=== PATIENT | male | born 1960 | race Asian ===

== ENCOUNTER 2017-06-30 13:52 | Inpatient (IN) | payer MEDICAID ==
[2017-06-30 17:46] LABS: ADD MAN DIFF? NO
[2017-06-30 17:50] LABS: BASOPHILS % 0.1 % (0.0-2.0); EOSINOPHILS % 0.1 % (0.0-7.0); HEMATOCRIT 51.5 % (42.0-52.0); HEMOGLOBIN 16.7 g/dl (14.0-18.0); LYMPHOCYTES # 0.8 10^3/ul (0.8-2.9); LYMPHOCYTES % 10.8 % (15.0-51.0); MEAN CORPUSCULAR HEMOGLOBIN 28.4 pg (29.0-33.0); MEAN CORPUSCULAR HGB CONC 32.4 g/dl (32.0-37.0); MEAN CORPUSCULAR VOLUME 87.4 fl (82.0-101.0); MEAN PLATELET VOLUME 10.4 fl (7.4-10.4); MONOCYTE # 0.6 10^3/ul (0.3-0.9); MONOCYTES % 7.3 % (0.0-11.0); NEUTROPHIL # 6.3 10^3/ul (1.6-7.5); NEUTROPHILS % 81.3 % (39.0-77.0); PLATELET COUNT 273 10^3/UL (140-415); RED BLOOD COUNT 5.89 10^6/ul (4.70-6.10); RED CELL DISTRIBUTION WIDTH 14.5 % (11.5-14.5)
[2017-06-30 17:50] LABS: WHITE BLOOD COUNT 7.8 10^3/ul (4.8-10.8)
[2017-06-30 18:11] LABS: ALANINE AMINOTRANSFERASE 44 IU/L (13-69); ALBUMIN 3.6 g/dl (3.3-4.9); ALKALINE PHOSPHATASE 142 IU/L (42-121); ASPARTATE AMINO TRANSFERASE 55 IU/L (15-46); BILIRUBIN,INDIRECT 1.2 mg/dl (0-1.1); BILIRUBIN,TOTAL 1.5 mg/dl (0.2-1.3); TOTAL PROTEIN 7.6 g/dl (6.1-8.1)
[2017-06-30 18:24] LABS: B-TYPE NATRIURETIC PEPTIDE 11400 PG/ML (0-125); TROPONIN-I 0.093 ng/ml (0.00-0.12)
[2017-06-30 18:32] LABS: ANION GAP 15 (8-16); BLOOD UREA NITROGEN 15 mg/dl (7-20); CALCIUM 8.6 mg/dl (8.4-10.2); CARBON DIOXIDE 32 mmol/L (21-31); CHLORIDE 98 mmol/L (97-110); GLUCOSE 212 mg/dl (70-220); POTASSIUM 3.9 mmol/L (3.5-5.1); SODIUM 141 mmol/L (135-144)
[2017-06-30] MEDS: FUROSEMIDE 40 MG INJ IV (18:57)
[2017-06-30] MEDS ORDERED: ONDANSETRON 4 MG INJ IV (19:30)
[2017-06-30] MEDS ORDERED: ACETAMINOPHEN 325 MG TAB PO (19:30)
[2017-06-30] MEDS: ALBUTEROL 0.5% (NEB) 2.5 MG/0.5 ML AMP INH (19:42)
[2017-06-30] MEDS: IPRATROPIUM (NEB) 0.5 MG/2.5 ML AMP INH (19:42)
[2017-07-01] MEDS ORDERED: ALBUTEROL/IPRATROPIUM (NEB) 3 ML AMP HHN (00:30)
[2017-07-01] MEDS ORDERED: morphine 2 MG INJ IV (00:30)
[2017-07-01] MEDS ORDERED: ONDANSETRON 4 MG INJ IV (00:30)
[2017-07-01] MEDS ORDERED: NITROGLYCERIN (SL) 0.4 MG TAB SL (00:30)
[2017-07-01] MEDS ORDERED: ACETAMINOPHEN 325 MG TAB PO (00:30)
[2017-07-01] MEDS ORDERED: NACL 0.9% 3 ML SYG IV (00:30)
[2017-07-01 06:08] LABS: ADD MAN DIFF? NO
[2017-07-01 06:39] LABS: WHITE BLOOD COUNT 6.7 10^3/ul (4.8-10.8)
[2017-07-01 06:39] LABS: BASOPHILS % 0.2 % (0.0-2.0); EOSINOPHILS % 0.3 % (0.0-7.0); HEMATOCRIT 41.8 % (42.0-52.0); HEMOGLOBIN 13.9 g/dl (14.0-18.0); LYMPHOCYTES # 0.7 10^3/ul (0.8-2.9); LYMPHOCYTES % 10.5 % (15.0-51.0); MEAN CORPUSCULAR HEMOGLOBIN 28.5 pg (29.0-33.0); MEAN CORPUSCULAR HGB CONC 33.3 g/dl (32.0-37.0); MEAN CORPUSCULAR VOLUME 85.8 fl (82.0-101.0); MEAN PLATELET VOLUME 10.2 fl (7.4-10.4); MONOCYTE # 0.6 10^3/ul (0.3-0.9); NEUTROPHIL # 5.3 10^3/ul (1.6-7.5); NEUTROPHILS % 79.7 % (39.0-77.0); PLATELET COUNT 236 10^3/UL (140-415); RED BLOOD COUNT 4.87 10^6/ul (4.70-6.10); RED CELL DISTRIBUTION WIDTH 14.6 % (11.5-14.5)
[2017-07-01 07:14] LABS: ALANINE AMINOTRANSFERASE 40 IU/L (13-69); ALBUMIN 2.4 g/dl (3.3-4.9); ALBUMIN/GLOBULIN RATIO 0.85; ALKALINE PHOSPHATASE 93 IU/L (42-121); ANION GAP 11 (8-16); ASPARTATE AMINO TRANSFERASE 29 IU/L (15-46); BILIRUBIN,INDIRECT 0.7 mg/dl (0-1.1); BILIRUBIN,TOTAL 0.7 mg/dl (0.2-1.3); BLOOD UREA NITROGEN 14 mg/dl (7-20); CALCIUM 7.7 mg/dl (8.4-10.2); CARBON DIOXIDE 32 mmol/L (21-31); CHLORIDE 101 mmol/L (97-110); CHOL/HDL RATIO 2.8 RATIO; CHOLESTEROL 80 mg/dl (100-200); CREATININE 0.84 mg/dl (0.61-1.24); GLUCOSE 206 mg/dl (70-220); HDL CHOLESTEROL 28 mg/dl (30-78); LDL CHOLESTEROL,CALCULATED 39 mg/dl; MAGNESIUM 1.7 mg/dl (1.7-2.5); POTASSIUM 3.4 mmol/L (3.5-5.1); SODIUM 141 mmol/L (135-144); TOTAL PROTEIN 5.2 g/dl (6.1-8.1); TRIGLYCERIDES 65 mg/dl (0-149)
[2017-07-01] MEDS: FUROSEMIDE 40 MG INJ IV ×2 (07:27→17:46)
[2017-07-01 08:17] LABS: HEMOGLOBIN A1C 11.3 % (0-5.9)
[2017-07-01] MEDS: HEPARIN 5,000 UNIT/0.5 ML VIAL SC ×2 (09:15→20:43)
[2017-07-01] MEDS ORDERED: GLUCOSE GEL 15 GRAM TUBE BUCCAL (11:00)
[2017-07-01] MEDS ORDERED: GLUCAGON 1 MG INJ IM (11:00)
[2017-07-01] MEDS ORDERED: DEXTROSE 50% 50 ML SYRINGE IV ×2 (11:00)
[2017-07-01] MEDS ORDERED: GLUCOSE GEL 15 GRAM TUBE PO ×2 (11:00)
[2017-07-01] MEDS ORDERED: VANCOMYCIN IV PER PHARMACY XX (11:00)
[2017-07-01] MEDS ORDERED: POTASSIUM CHLORIDE 30 MEQ in DEXTROSE 5% 250 ML IVPB (11:00)
[2017-07-01] MEDS: GABAPENTIN 300 MG CAP PO ×2 (12:44→20:42)
[2017-07-01] MEDS: POTASSIUM CHLORIDE 50 ML IVPB ×3 (12:46→17:46)
[2017-07-01] MEDS: INSULIN ASPART [NOVOLOG] 3 ML PEN SC ×3 (12:48→20:43)
[2017-07-01] MEDS: ALBUTEROL/IPRATROPIUM (NEB) 3 ML AMP HHN ×2 (14:00→20:12)
[2017-07-01] MEDS: VANCOMYCIN 1.75 GM in SOD CHLORIDE 0.9% 500 ML IVPB (16:07)
[2017-07-01 18:05] LABS: TROPONIN-I 0.075 ng/ml (0.00-0.12)
[2017-07-01] MEDS: INSULIN GLARGINE [LANtus] 3 ML PEN SC (20:41)
[2017-07-01] MEDS: BENAZEPRIL 10 MG TAB PO (20:42)
[2017-07-02] MEDS ORDERED: AMPICILLIN/SULB 1.5GM/NS (PMX) 50 ML IVPB
[2017-07-02] MEDS ORDERED: VANCOMYCIN 1.25 GM in SODIUM CHLORIDE 0.45 % 250 ML IVPB (01:00)
[2017-07-02] MEDS ORDERED: ACCU-CHEK XX (02:00)
== END 2017-07-01 22:45 | disposition left against medical advice (07) | DRG 293 ==
LOC: TEL 19:22 → E/R 13:52
DX: I50.9 Heart failure, unspecified (principal); I42.9 Cardiomyopathy, unspecified; S81.801A Unspecified open wound, right lower leg, initial encounter; F15.10 Other stimulant abuse, uncomplicated; R94.31 Abnormal electrocardiogram [ECG] [EKG]; I45.10 Unspecified right bundle-branch block; E78.5 Hyperlipidemia, unspecified; S81.802A Unspecified open wound, left lower leg, initial encounter; X58.XXXA Exposure to other specified factors, initial encounter
CPT/HCPCS: 36415; 71045; 76870; 80048; 80053; 80061; 80076; 82962; 83036; 83735; 83880; 84443; 84484; 85025; 87400; 93005; 94644; 94664; 96374; 96376; 99285-25

== ENCOUNTER 2017-07-27 11:49 | Inpatient (IN) | payer MEDICAID ==
[2017-07-27 13:38] LABS: ADD MAN DIFF? NO
[2017-07-27 13:41] LABS: WHITE BLOOD COUNT 9.5 10^3/ul (4.8-10.8)
[2017-07-27 13:41] LABS: ABNORMAL IP MESSAGE 1; BASOPHILS % 0.1 % (0.0-2.0); EOSINOPHILS % 0.2 % (0.0-7.0); HEMOGLOBIN 14.7 g/dl (14.0-18.0); LYMPHOCYTES # 0.6 10^3/ul (0.8-2.9); LYMPHOCYTES % 5.8 % (15.0-51.0); MEAN CORPUSCULAR HGB CONC 32.7 g/dl (32.0-37.0); MEAN CORPUSCULAR VOLUME 88.8 fl (82.0-101.0); MEAN PLATELET VOLUME 10.5 fl (7.4-10.4); MONOCYTE # 0.5 10^3/ul (0.3-0.9); MONOCYTES % 4.9 % (0.0-11.0); NEUTROPHIL # 8.4 10^3/ul (1.6-7.5); NEUTROPHILS % 88.5 % (39.0-77.0); PLATELET COUNT 282 10^3/UL (140-415); POSITIVE DIFF @See below; RED BLOOD COUNT 5.07 10^6/ul (4.70-6.10); RED CELL DISTRIBUTION WIDTH 17.5 % (11.5-14.5)
[2017-07-27] MEDS: SOD CHLORIDE 0.9% 1,000 ML IV ×2 (13:45→17:14)
[2017-07-27 14:10] LABS: ALANINE AMINOTRANSFERASE 41 IU/L (13-69); ALBUMIN 2.9 g/dl (3.3-4.9); ALBUMIN/GLOBULIN RATIO 0.82; ALKALINE PHOSPHATASE 102 IU/L (42-121); ANION GAP 17 (8-16); ASPARTATE AMINO TRANSFERASE 26 IU/L (15-46); BILIRUBIN,INDIRECT 0.7 mg/dl (0-1.1); BILIRUBIN,TOTAL 1.1 mg/dl (0.2-1.3); BLOOD UREA NITROGEN 17 mg/dl (7-20); CALCIUM 8.3 mg/dl (8.4-10.2); CARBON DIOXIDE 30 mmol/L (21-31); CHLORIDE 99 mmol/L (97-110); CREATININE 0.75 mg/dl (0.61-1.24); GLUCOSE 229 mg/dl (70-220); POTASSIUM 4.6 mmol/L (3.5-5.1); SODIUM 141 mmol/L (135-144); TOTAL PROTEIN 6.4 g/dl (6.1-8.1)
[2017-07-27 14:20] LABS: TROPONIN-I 0.052 ng/ml (0.00-0.12)
[2017-07-27] MEDS: CEFEPIME 1GM/50 ML (PMX) 50 ML IVPB (17:05)
[2017-07-27] MEDS ORDERED: ONDANSETRON 4 MG INJ IV (17:30)
[2017-07-27] MEDS ORDERED: ACETAMINOPHEN 325 MG TAB PO (17:30)
[2017-07-27] MEDS: VANCOMYCIN 1 GM (PMX) 250 ML IVPB (18:07)
[2017-07-27] MEDS ORDERED: VANCOMYCIN IV PER PHARMACY XX (20:00)
[2017-07-27 20:58] LABS: HEMOGLOBIN A1C 11.2 % (0-5.9)
[2017-07-27] MEDS ORDERED: GLUCOSE GEL 15 GRAM TUBE PO ×2 (21:00)
[2017-07-27] MEDS ORDERED: DEXTROSE 50% 50 ML SYRINGE IV ×2 (21:00)
[2017-07-27] MEDS ORDERED: GLUCAGON 1 MG INJ IM (21:00)
[2017-07-27] MEDS ORDERED: GLUCOSE GEL 15 GRAM TUBE BUCCAL (21:00)
[2017-07-27] MEDS ORDERED: PENDING SANTYL ORDER FOR WOUND CARE XX (21:30)
[2017-07-27] MEDS: VANCOMYCIN 500MG/NS (PMX) 100 ML IVPB (21:30)
[2017-07-27] MEDS: INSULIN GLARGINE [LANtus] 3 ML PEN SC (21:32)
[2017-07-27] MEDS: INSULIN ASPART [NOVOLOG] 3 ML PEN SC (21:33)
[2017-07-27] MEDS: HEPARIN 5,000 UNIT/0.5 ML VIAL SC (21:34)
[2017-07-27] MEDS: CLINDAMYCIN 900 MG/D5W (PMX) 50 ML IVPB (21:42)
[2017-07-28] MEDS: CEFEPIME 1GM/50 ML (PMX) 50 ML IVPB ×3 (00:09→21:33)
[2017-07-28] MEDS: ACCU-CHEK XX (02:00)
[2017-07-28] MEDS ORDERED: ALBUTEROL/IPRATROPIUM (NEB) 3 ML AMP HHN (05:30)
[2017-07-28] MEDS: LEVOFLOXACIN 500MG/D5W (PMX) 100 ML IVPB (06:25)
[2017-07-28] MEDS: FUROSEMIDE 40 MG INJ IV (06:30)
[2017-07-28] MEDS: INSULIN ASPART [NOVOLOG] 3 ML PEN SC ×4 (08:00→21:00)
[2017-07-28] MEDS: HEPARIN 5,000 UNIT/0.5 ML VIAL SC ×2 (08:36→21:12)
[2017-07-28] MEDS: VANCOMYCIN 1.25 GM in SOD CHLORIDE 0.45% 250 ML IVPB ×2 (09:53→23:17)
[2017-07-28] MEDS: HYDROmorphONE 0.5 MG/0.5 ML SYG IV (15:02)
[2017-07-28 16:25] LABS: ETHANOL < 10.0 mg/dl
[2017-07-28 16:28] LABS: ADD UMIC YES; UR ASCORBIC ACID NEGATIVE (NEGATIVE); UR BILIRUBIN (Dip) NEGATIVE (NEGATIVE); UR BLOOD (Dip) 1+ mg/dL (NEGATIVE); UR CLARITY CLEAR (CLEAR); UR COLOR YELLOW (YELLOW); UR GLUCOSE (Dip) NEGATIVE (NEGATIVE); UR KETONES (Dip) NEGATIVE (NEGATIVE); UR LEUKOCYTE ESTERASE (Dip) NEGATIVE Leu/ul (NEGATIVE); UR NITRITE (Dip) NEGATIVE (NEGATIVE); UR RBC 1 /HPF (0-5); UR SPECIFIC GRAVITY (Dip) 1.008 (1.003-1.030); UR TOTAL PROTEIN (Dip) NEGATIVE (NEGATIVE); UR UROBILINOGEN (Dip) 1+ mg/dL (NEGATIVE); UR WBC 0 /HPF (0-5)
[2017-07-28] MEDS: INSULIN GLARGINE [LANtus] 3 ML PEN SC (21:38)
[2017-07-29] MEDS: ACCU-CHEK XX (02:00)
[2017-07-29] MEDS: LEVOFLOXACIN 500MG/D5W (PMX) 100 ML IVPB (05:36)
[2017-07-29] MEDS: FUROSEMIDE 40 MG INJ IV (05:36)
[2017-07-29 06:39] LABS: ADD MAN DIFF? NO
[2017-07-29 06:54] LABS: WHITE BLOOD COUNT 7.6 10^3/ul (4.8-10.8)
[2017-07-29 06:54] LABS: ABNORMAL IP MESSAGE 1; BASOPHILS % 0.3 % (0.0-2.0); EOSINOPHILS # 0.1 10^3/ul (0.0-0.5); EOSINOPHILS % 0.9 % (0.0-7.0); HEMOGLOBIN 13.2 g/dl (14.0-18.0); LYMPHOCYTES # 0.4 10^3/ul (0.8-2.9); LYMPHOCYTES % 5.7 % (15.0-51.0); MEAN CORPUSCULAR HEMOGLOBIN 28.6 pg (29.0-33.0); MEAN CORPUSCULAR HGB CONC 32.2 g/dl (32.0-37.0); MEAN CORPUSCULAR VOLUME 88.9 fl (82.0-101.0); MONOCYTE # 0.5 10^3/ul (0.3-0.9); MONOCYTES % 6.9 % (0.0-11.0); NEUTROPHIL # 6.5 10^3/ul (1.6-7.5); NEUTROPHILS % 85.8 % (39.0-77.0); POSITIVE DIFF @See below; RED BLOOD COUNT 4.61 10^6/ul (4.70-6.10); RED CELL DISTRIBUTION WIDTH 16.9 % (11.5-14.5)
[2017-07-29 07:09] LABS: PLATELET COUNT 187 10^3/UL (140-415)
[2017-07-29 07:20] LABS: ANION GAP 13 (8-16); BLOOD UREA NITROGEN 25 mg/dl (7-20); CALCIUM 7.9 mg/dl (8.4-10.2); CARBON DIOXIDE 27 mmol/L (21-31); CHLORIDE 102 mmol/L (97-110); CREATININE 0.85 mg/dl (0.61-1.24); GLUCOSE 284 mg/dl (70-220); SODIUM 137 mmol/L (135-144)
[2017-07-29 08:11] LABS: CREATININE 0.87 mg/dl (0.61-1.24)
[2017-07-29 08:11] LABS: BLOOD UREA NITROGEN 25 mg/dl (7-20)
[2017-07-29] MEDS: INSULIN ASPART [NOVOLOG] 3 ML PEN SC ×6 (08:31→20:36)
[2017-07-29] MEDS: HEPARIN 5,000 UNIT/0.5 ML VIAL SC ×2 (08:32→20:35)
[2017-07-29] MEDS: CEFEPIME 1GM/50 ML (PMX) 50 ML IVPB ×2 (10:00→20:29)
[2017-07-29 10:39] LABS: VANCOMYCIN,TROUGH 15.6 ug/ml (10.0-20.0)
[2017-07-29] MEDS: VANCOMYCIN 1.25 GM in SOD CHLORIDE 0.45% 250 ML IVPB ×2 (10:53→22:18)
[2017-07-29] MEDS: MULTIVITAMINS THERAPEUTIC TAB PO (12:33)
[2017-07-29] MEDS: LEVOFLOXACIN 500 MG TAB PO (17:45)
[2017-07-29] MEDS: INSULIN GLARGINE [LANtus] 3 ML PEN SC (20:35)
[2017-07-29] MEDS: HYDROCODONE/APAP (5/325) TAB PO (22:41)
[2017-07-30] MEDS: ACCU-CHEK XX (02:00)
[2017-07-30] MEDS: FUROSEMIDE 40 MG INJ IV (05:19)
[2017-07-30] MEDS: LEVOFLOXACIN 500 MG TAB PO (05:19)
[2017-07-30] MEDS: INSULIN ASPART [NOVOLOG] 3 ML PEN SC ×7 (08:08→20:35)
[2017-07-30] MEDS: CEFEPIME 1GM/50 ML (PMX) 50 ML IVPB (08:11)
[2017-07-30] MEDS: MULTIVITAMINS THERAPEUTIC TAB PO (08:12)
[2017-07-30] MEDS: HEPARIN 5,000 UNIT/0.5 ML VIAL SC ×2 (08:14→20:46)
[2017-07-30 09:27] LABS: ADD MAN DIFF? NO
[2017-07-30 09:34] LABS: ABNORMAL IP MESSAGE 1; BASOPHILS % 0.1 % (0.0-2.0); EOSINOPHILS # 0.1 10^3/ul (0.0-0.5); EOSINOPHILS % 1.3 % (0.0-7.0); HEMATOCRIT 43.5 % (42.0-52.0); HEMOGLOBIN 13.9 g/dl (14.0-18.0); LYMPHOCYTES # 0.5 10^3/ul (0.8-2.9); LYMPHOCYTES % 6.4 % (15.0-51.0); MEAN CORPUSCULAR HEMOGLOBIN 28.8 pg (29.0-33.0); MEAN CORPUSCULAR VOLUME 90.2 fl (82.0-101.0); MEAN PLATELET VOLUME 10.6 fl (7.4-10.4); MONOCYTE # 0.6 10^3/ul (0.3-0.9); MONOCYTES % 6.7 % (0.0-11.0); NEUTROPHIL # 7.2 10^3/ul (1.6-7.5); NEUTROPHILS % 84.9 % (39.0-77.0); PLATELET COUNT 256 10^3/UL (140-415); POSITIVE DIFF @See below; RED BLOOD COUNT 4.82 10^6/ul (4.70-6.10); RED CELL DISTRIBUTION WIDTH 16.8 % (11.5-14.5)
[2017-07-30 09:34] LABS: WHITE BLOOD COUNT 8.5 10^3/ul (4.8-10.8)
[2017-07-30 10:07] LABS: ANION GAP 10 (8-16); BLOOD UREA NITROGEN 29 mg/dl (7-20); CALCIUM 7.8 mg/dl (8.4-10.2); CARBON DIOXIDE 34 mmol/L (21-31); CHLORIDE 95 mmol/L (97-110); CREATININE 0.98 mg/dl (0.61-1.24); GLUCOSE 134 mg/dl (70-220); SODIUM 135 mmol/L (135-144)
[2017-07-30 10:43] LABS: MAGNESIUM 1.9 mg/dl (1.7-2.5)
[2017-07-30 10:43] LABS: PHOSPHORUS 3.1 mg/dl (2.5-4.9)
[2017-07-30] MEDS: VANCOMYCIN 1.25 GM in SOD CHLORIDE 0.45% 250 ML IVPB ×2 (11:29→22:37)
[2017-07-30] MEDS: FUROSEMIDE 40 MG TAB PO (17:14)
[2017-07-30] MEDS: INSULIN GLARGINE [LANtus] 3 ML PEN SC (20:46)
[2017-07-30] MEDS: HYDROCODONE/APAP (5/325) TAB PO (22:38)
[2017-07-31] MEDS ORDERED: ZOLPIDEM 5 MG TAB PO
[2017-07-31] MEDS: ACCU-CHEK XX (01:19)
[2017-07-31] MEDS: LEVOFLOXACIN 500 MG TAB PO (05:30)
[2017-07-31] MEDS: FUROSEMIDE 40 MG TAB PO ×2 (05:31→18:00)
[2017-07-31 07:37] LABS: ADD MAN DIFF? NO
[2017-07-31 07:50] LABS: WHITE BLOOD COUNT 8.7 10^3/ul (4.8-10.8)
[2017-07-31 07:50] LABS: BASOPHILS % 0.3 % (0.0-2.0); EOSINOPHILS # 0.1 10^3/ul (0.0-0.5); EOSINOPHILS % 1.6 % (0.0-7.0); HEMATOCRIT 44.6 % (42.0-52.0); HEMOGLOBIN 14.3 g/dl (14.0-18.0); LYMPHOCYTES # 0.7 10^3/ul (0.8-2.9); LYMPHOCYTES % 7.5 % (15.0-51.0); MEAN CORPUSCULAR HEMOGLOBIN 28.5 pg (29.0-33.0); MEAN CORPUSCULAR HGB CONC 32.1 g/dl (32.0-37.0); MEAN PLATELET VOLUME 10.3 fl (7.4-10.4); MONOCYTE # 0.5 10^3/ul (0.3-0.9); MONOCYTES % 5.9 % (0.0-11.0); NEUTROPHIL # 7.3 10^3/ul (1.6-7.5); NEUTROPHILS % 84.2 % (39.0-77.0); PLATELET COUNT 277 10^3/UL (140-415); RED BLOOD COUNT 5.01 10^6/ul (4.70-6.10); RED CELL DISTRIBUTION WIDTH 16.6 % (11.5-14.5)
[2017-07-31] MEDS: INSULIN ASPART [NOVOLOG] 3 ML PEN SC ×7 (08:00→20:19)
[2017-07-31 08:03] LABS: ANION GAP 7 (8-16); BLOOD UREA NITROGEN 25 mg/dl (7-20); CALCIUM 8.3 mg/dl (8.4-10.2); CARBON DIOXIDE 38 mmol/L (21-31); CHLORIDE 95 mmol/L (97-110); CREATININE 0.91 mg/dl (0.61-1.24); POTASSIUM 3.4 mmol/L (3.5-5.1); SODIUM 137 mmol/L (135-144)
[2017-07-31 08:11] LABS: GLUCOSE 44 mg/dl (70-220)
[2017-07-31] MEDS: LISINOPRIL 5 MG TAB PO (08:39)
[2017-07-31] MEDS: MULTIVITAMINS THERAPEUTIC TAB PO (08:39)
[2017-07-31] MEDS: HEPARIN 5,000 UNIT/0.5 ML VIAL SC ×2 (08:41→20:17)
[2017-07-31] MEDS: VANCOMYCIN 1.25 GM in SOD CHLORIDE 0.45% 250 ML IVPB ×2 (11:16→21:55)
[2017-07-31] MEDS: POTASSIUM CHLORIDE (SR) 20 MEQ TAB PO (15:30)
[2017-07-31] MEDS ORDERED: FENTAnyl 50 MCG/ML VIAL (16:44)
[2017-07-31] MEDS ORDERED: MIDAZOLAM 1 MG/ML 2 ML INJ (16:52)
[2017-07-31] MEDS: TOBRAMYCIN 1.2 GM POWDER ZFS (17:01)
[2017-07-31] MEDS: POLYMYXIN/BACITRACIN 1L IRRIG (17:12)
[2017-07-31] MEDS: INSULIN GLARGINE [LANtus] 3 ML PEN SC (20:16)
[2017-08-01] MEDS: ACCU-CHEK XX ×2 (02:13→20:39)
[2017-08-01] MEDS: HYDROCODONE/APAP (5/325) TAB PO ×3 (03:46→15:58)
[2017-08-01] MEDS: LEVOFLOXACIN 500 MG TAB PO (05:20)
[2017-08-01] MEDS: FUROSEMIDE 40 MG TAB PO ×2 (05:21→17:12)
[2017-08-01 07:35] LABS: WHITE BLOOD COUNT 9.7 10^3/ul (4.8-10.8)
[2017-08-01 07:35] LABS: ABNORMAL IP MESSAGE 1; ADD MAN DIFF? NO; BASOPHILS % 0.3 % (0.0-2.0); EOSINOPHILS # 0.1 10^3/ul (0.0-0.5); EOSINOPHILS % 0.7 % (0.0-7.0); HEMATOCRIT 41.1 % (42.0-52.0); HEMOGLOBIN 13.2 g/dl (14.0-18.0); LYMPHOCYTES # 0.6 10^3/ul (0.8-2.9); LYMPHOCYTES % 5.7 % (15.0-51.0); MEAN CORPUSCULAR HEMOGLOBIN 28.7 pg (29.0-33.0); MEAN CORPUSCULAR HGB CONC 32.1 g/dl (32.0-37.0); MEAN CORPUSCULAR VOLUME 89.3 fl (82.0-101.0); MEAN PLATELET VOLUME 10.4 fl (7.4-10.4); MONOCYTE # 0.6 10^3/ul (0.3-0.9); NEUTROPHIL # 8.4 10^3/ul (1.6-7.5); NEUTROPHILS % 86.8 % (39.0-77.0); PLATELET COUNT 249 10^3/UL (140-415); POSITIVE DIFF @See below; RED CELL DISTRIBUTION WIDTH 16.4 % (11.5-14.5)
[2017-08-01] MEDS: INSULIN ASPART [NOVOLOG] 3 ML PEN SC ×7 (08:00→20:39)
[2017-08-01 08:15] LABS: ANION GAP 7 (8-16); BLOOD UREA NITROGEN 21 mg/dl (7-20); CALCIUM 7.8 mg/dl (8.4-10.2); CARBON DIOXIDE 36 mmol/L (21-31); CHLORIDE 97 mmol/L (97-110); CREATININE 0.82 mg/dl (0.61-1.24); GLUCOSE 105 mg/dl (70-220); POTASSIUM 3.9 mmol/L (3.5-5.1); SODIUM 136 mmol/L (135-144)
[2017-08-01] MEDS: HEPARIN 5,000 UNIT/0.5 ML VIAL SC ×2 (08:29→20:41)
[2017-08-01] MEDS: LISINOPRIL 5 MG TAB PO (08:32)
[2017-08-01] MEDS: MULTIVITAMINS THERAPEUTIC TAB PO (08:32)
[2017-08-01 09:51] LABS: VANCOMYCIN,TROUGH 21.4 ug/ml (10.0-20.0)
[2017-08-01] MEDS: COLLAGENASE 30 GM TUBE TOP (12:34)
[2017-08-01] MEDS: VANCOMYCIN 1.5 GM in DEXTROSE 5% 500 ML IVPB (14:32)
[2017-08-01] MEDS: INSULIN GLARGINE [LANtus] 3 ML PEN SC (20:42)
[2017-08-01] MEDS ORDERED: ZOLPIDEM 5 MG TAB PO (22:30)
[2017-08-02] MEDS: FUROSEMIDE 40 MG TAB PO ×2 (05:59→18:08)
[2017-08-02] MEDS: LEVOFLOXACIN 500 MG TAB PO (05:59)
[2017-08-02 07:20] LABS: ADD MAN DIFF? NO
[2017-08-02 07:29] LABS: WHITE BLOOD COUNT 7.9 10^3/ul (4.8-10.8)
[2017-08-02 07:29] LABS: BASOPHILS % 0.5 % (0.0-2.0); EOSINOPHILS # 0.1 10^3/ul (0.0-0.5); EOSINOPHILS % 1.6 % (0.0-7.0); HEMATOCRIT 41.4 % (42.0-52.0); HEMOGLOBIN 13.5 g/dl (14.0-18.0); LYMPHOCYTES # 0.8 10^3/ul (0.8-2.9); LYMPHOCYTES % 10.6 % (15.0-51.0); MEAN CORPUSCULAR HGB CONC 32.6 g/dl (32.0-37.0); MEAN CORPUSCULAR VOLUME 88.8 fl (82.0-101.0); MEAN PLATELET VOLUME 10.6 fl (7.4-10.4); MONOCYTE # 0.7 10^3/ul (0.3-0.9); NEUTROPHIL # 6.2 10^3/ul (1.6-7.5); NEUTROPHILS % 77.5 % (39.0-77.0); PLATELET COUNT 268 10^3/UL (140-415); RED BLOOD COUNT 4.66 10^6/ul (4.70-6.10); RED CELL DISTRIBUTION WIDTH 16.5 % (11.5-14.5)
[2017-08-02 07:49] LABS: ANION GAP 7 (8-16); BLOOD UREA NITROGEN 23 mg/dl (7-20); CARBON DIOXIDE 36 mmol/L (21-31); CHLORIDE 96 mmol/L (97-110); CREATININE 0.93 mg/dl (0.61-1.24); GLUCOSE 71 mg/dl (70-220); POTASSIUM 4.6 mmol/L (3.5-5.1); SODIUM 134 mmol/L (135-144)
[2017-08-02] MEDS: INSULIN ASPART [NOVOLOG] 3 ML PEN SC ×7 (08:00→21:08)
[2017-08-02] MEDS: LISINOPRIL 5 MG TAB PO (08:45)
[2017-08-02] MEDS: MULTIVITAMINS THERAPEUTIC TAB PO (08:45)
[2017-08-02] MEDS: HEPARIN 5,000 UNIT/0.5 ML VIAL SC ×2 (08:45→21:11)
[2017-08-02] MEDS: HYDROCODONE/APAP (5/325) TAB PO ×2 (10:14→21:13)
[2017-08-02] MEDS: COLLAGENASE 30 GM TUBE TOP (10:14)
[2017-08-02] MEDS: VANCOMYCIN 1.5 GM in DEXTROSE 5% 500 ML IVPB (12:56)
[2017-08-02] MEDS: INSULIN GLARGINE [LANtus] 3 ML PEN SC (21:07)
[2017-08-03] MEDS: ACCU-CHEK XX (02:00)
[2017-08-03] MEDS: HYDROCODONE/APAP (5/325) TAB PO ×3 (03:31→13:34)
[2017-08-03] MEDS: LEVOFLOXACIN 500 MG TAB PO (05:34)
[2017-08-03] MEDS: FUROSEMIDE 40 MG TAB PO ×2 (05:35→17:23)
[2017-08-03 07:12] LABS: ANION GAP 6 (8-16); BLOOD UREA NITROGEN 21 mg/dl (7-20); CALCIUM 7.9 mg/dl (8.4-10.2); CARBON DIOXIDE 37 mmol/L (21-31); CHLORIDE 95 mmol/L (97-110); CREATININE 0.86 mg/dl (0.61-1.24); GLUCOSE 117 mg/dl (70-220); MAGNESIUM 1.7 mg/dl (1.7-2.5); PHOSPHORUS 3.1 mg/dl (2.5-4.9); POTASSIUM 3.9 mmol/L (3.5-5.1); SODIUM 134 mmol/L (135-144)
[2017-08-03] MEDS: INSULIN ASPART [NOVOLOG] 3 ML PEN SC ×7 (07:53→21:00)
[2017-08-03] MEDS: COLLAGENASE 30 GM TUBE TOP ×2 (09:00→13:34)
[2017-08-03] MEDS: LISINOPRIL 5 MG TAB PO (09:00)
[2017-08-03] MEDS: MULTIVITAMINS THERAPEUTIC TAB PO (09:07)
[2017-08-03] MEDS: HEPARIN 5,000 UNIT/0.5 ML VIAL SC ×2 (09:07→21:32)
[2017-08-03] MEDS: VANCOMYCIN 1.5 GM in DEXTROSE 5% 500 ML IVPB (13:30)
[2017-08-03] MEDS: HYDROmorphONE 0.5 MG/0.5 ML SYG IV (14:53)
[2017-08-03] MEDS: HYDROCODONE/APAP (10/325) TAB PO (15:26)
[2017-08-03] MEDS: LACTOBACILLUS RHAMNOSUS CAP PO ×2 (15:26→21:24)
[2017-08-03] MEDS: THIAMINE 100 MG TAB PO (15:26)
[2017-08-03] MEDS: SPIRONOLACTONE 25 MG TAB PO (15:26)
[2017-08-03] MEDS: MAGNESIUM OXIDE 400 MG TAB PO ×2 (15:26→21:23)
[2017-08-03] MEDS: FAMOTIDINE 20 MG TAB PO (21:24)
[2017-08-03] MEDS: INSULIN GLARGINE [LANtus] 3 ML PEN SC (21:39)
[2017-08-04] MEDS: ACCU-CHEK XX (02:00)
[2017-08-04] MEDS: LEVOFLOXACIN 500 MG TAB PO (05:19)
[2017-08-04] MEDS: FUROSEMIDE 40 MG TAB PO ×2 (05:19→17:31)
[2017-08-04] MEDS: SPIRONOLACTONE 25 MG TAB PO (05:19)
[2017-08-04 05:40] LABS: ADD MAN DIFF? NO
[2017-08-04 05:42] LABS: BASOPHIL # 0.1 10^3/ul (0.0-0.1); BASOPHILS % 0.6 % (0.0-2.0); EOSINOPHILS # 0.1 10^3/ul (0.0-0.5); EOSINOPHILS % 0.9 % (0.0-7.0); HEMATOCRIT 41.4 % (42.0-52.0); HEMOGLOBIN 13.4 g/dl (14.0-18.0); LYMPHOCYTES # 0.9 10^3/ul (0.8-2.9); LYMPHOCYTES % 10.8 % (15.0-51.0); MEAN CORPUSCULAR HEMOGLOBIN 28.6 pg (29.0-33.0); MEAN CORPUSCULAR HGB CONC 32.4 g/dl (32.0-37.0); MEAN CORPUSCULAR VOLUME 88.3 fl (82.0-101.0); MEAN PLATELET VOLUME 10.1 fl (7.4-10.4); MONOCYTE # 0.7 10^3/ul (0.3-0.9); NEUTROPHIL # 6.4 10^3/ul (1.6-7.5); PLATELET COUNT 244 10^3/UL (140-415); RED BLOOD COUNT 4.69 10^6/ul (4.70-6.10)
[2017-08-04 05:42] LABS: WHITE BLOOD COUNT 8.2 10^3/ul (4.8-10.8)
[2017-08-04 05:51] LABS: PARTIAL THROMBOPLASTIN TIME 43.7 Sec (25.0-35.0)
[2017-08-04 07:23] LABS: BLOOD UREA NITROGEN 23 mg/dl (7-20); CALCIUM 8.7 mg/dl (8.4-10.2); CHLORIDE 91 mmol/L (97-110); CREATININE 1.05 mg/dl (0.61-1.24); GLUCOSE 110 mg/dl (70-220); MAGNESIUM 1.8 mg/dl (1.7-2.5); PHOSPHORUS 3.6 mg/dl (2.5-4.9); POTASSIUM 4.4 mmol/L (3.5-5.1); SODIUM 137 mmol/L (135-144)
[2017-08-04 07:30] LABS: ANION GAP 11 (8-16)
[2017-08-04 07:36] LABS: CARBON DIOXIDE 39 mmol/L (21-31)
[2017-08-04] MEDS: LISINOPRIL 5 MG TAB PO (08:06)
[2017-08-04] MEDS: MAGNESIUM OXIDE 400 MG TAB PO ×2 (08:13→20:30)
[2017-08-04] MEDS: THIAMINE 100 MG TAB PO (08:13)
[2017-08-04] MEDS: MULTIVITAMINS THERAPEUTIC TAB PO (08:13)
[2017-08-04] MEDS: LACTOBACILLUS RHAMNOSUS CAP PO ×2 (08:13→20:38)
[2017-08-04] MEDS: HEPARIN 5,000 UNIT/0.5 ML VIAL SC ×2 (08:14→20:33)
[2017-08-04] MEDS: INSULIN ASPART [NOVOLOG] 3 ML PEN SC ×7 (08:15→20:33)
[2017-08-04] MEDS: COLLAGENASE 30 GM TUBE TOP (08:27)
[2017-08-04] MEDS: HYDROCODONE/APAP (10/325) TAB PO ×2 (12:45→17:32)
[2017-08-04] MEDS: VANCOMYCIN 1.5 GM in DEXTROSE 5% 500 ML IVPB (14:50)
[2017-08-04] MEDS: FAMOTIDINE 20 MG TAB PO (20:30)
[2017-08-04] MEDS: INSULIN GLARGINE [LANtus] 3 ML PEN SC (20:32)
[2017-08-05] MEDS: ACCU-CHEK XX (02:00)
[2017-08-05] MEDS: LEVOTHYROXINE 50 MCG TAB PO (05:50)
[2017-08-05] MEDS: SPIRONOLACTONE 25 MG TAB PO (05:50)
[2017-08-05] MEDS: LEVOFLOXACIN 500 MG TAB PO (05:50)
[2017-08-05] MEDS: FUROSEMIDE 40 MG TAB PO ×2 (05:50→17:00)
[2017-08-05] MEDS: MULTIVITAMINS THERAPEUTIC TAB PO (08:46)
[2017-08-05] MEDS: THIAMINE 100 MG TAB PO (08:46)
[2017-08-05] MEDS: LACTOBACILLUS RHAMNOSUS CAP PO ×2 (08:47→21:07)
[2017-08-05] MEDS: MAGNESIUM OXIDE 400 MG TAB PO ×2 (08:47→21:08)
[2017-08-05] MEDS: INSULIN ASPART [NOVOLOG] 3 ML PEN SC ×7 (08:49→21:05)
[2017-08-05] MEDS: HEPARIN 5,000 UNIT/0.5 ML VIAL SC ×2 (08:49→21:06)
[2017-08-05] MEDS: COLLAGENASE 30 GM TUBE TOP (08:51)
[2017-08-05] MEDS: LISINOPRIL 5 MG TAB PO (10:26)
[2017-08-05] MEDS: VANCOMYCIN 1.5 GM in DEXTROSE 5% 500 ML IVPB (12:15)
[2017-08-05 12:53] LABS: CREATININE 1.06 mg/dl (0.61-1.24)
[2017-08-05 12:53] LABS: BLOOD UREA NITROGEN 21 mg/dl (7-20)
[2017-08-05] MEDS: INSULIN GLARGINE [LANtus] 3 ML PEN SC (21:05)
[2017-08-05] MEDS: FAMOTIDINE 20 MG TAB PO (21:06)
[2017-08-06] MEDS: ACCU-CHEK XX (02:00)
[2017-08-06] MEDS: LEVOTHYROXINE 50 MCG TAB PO (06:15)
[2017-08-06] MEDS: FUROSEMIDE 40 MG TAB PO ×2 (06:15→17:42)
[2017-08-06] MEDS: SPIRONOLACTONE 25 MG TAB PO (06:15)
[2017-08-06] MEDS: LEVOFLOXACIN 500 MG TAB PO (06:15)
[2017-08-06 06:35] LABS: ADD MAN DIFF? NO
[2017-08-06 06:44] LABS: WHITE BLOOD COUNT 8.9 10^3/ul (4.8-10.8)
[2017-08-06 06:44] LABS: BASOPHIL # 0.1 10^3/ul (0.0-0.1); BASOPHILS % 0.8 % (0.0-2.0); EOSINOPHILS # 0.1 10^3/ul (0.0-0.5); EOSINOPHILS % 0.9 % (0.0-7.0); HEMATOCRIT 40.2 % (42.0-52.0); HEMOGLOBIN 13.5 g/dl (14.0-18.0); LYMPHOCYTES # 1.1 10^3/ul (0.8-2.9); LYMPHOCYTES % 12.8 % (15.0-51.0); MEAN CORPUSCULAR HEMOGLOBIN 29.1 pg (29.0-33.0); MEAN CORPUSCULAR HGB CONC 33.6 g/dl (32.0-37.0); MEAN CORPUSCULAR VOLUME 86.6 fl (82.0-101.0); MONOCYTE # 0.8 10^3/ul (0.3-0.9); MONOCYTES % 8.9 % (0.0-11.0); NEUTROPHIL # 6.7 10^3/ul (1.6-7.5); NEUTROPHILS % 75.8 % (39.0-77.0); PLATELET COUNT 223 10^3/UL (140-415); RED BLOOD COUNT 4.64 10^6/ul (4.70-6.10); RED CELL DISTRIBUTION WIDTH 16.8 % (11.5-14.5)
[2017-08-06 07:08] LABS: ALBUMIN/GLOBULIN RATIO 0.71
[2017-08-06 07:33] LABS: ALANINE AMINOTRANSFERASE 72 IU/L (13-69); ALBUMIN 2.5 g/dl (3.3-4.9); ALKALINE PHOSPHATASE 136 IU/L (42-121); ANION GAP 9 (8-16); ASPARTATE AMINO TRANSFERASE 68 IU/L (15-46); BILIRUBIN,INDIRECT 0.3 mg/dl (0-1.1); BILIRUBIN,TOTAL 0.3 mg/dl (0.2-1.3); BLOOD UREA NITROGEN 30 mg/dl (7-20); CALCIUM 8.5 mg/dl (8.4-10.2); CHLORIDE 89 mmol/L (97-110); GLUCOSE 296 mg/dl (70-220); MAGNESIUM 1.8 mg/dl (1.7-2.5); PHOSPHORUS 3.1 mg/dl (2.5-4.9); SODIUM 134 mmol/L (135-144)
[2017-08-06 07:38] LABS: POTASSIUM 4.2 mmol/L (3.5-5.1)
[2017-08-06 07:51] LABS: CARBON DIOXIDE 40 mmol/L (21-31)
[2017-08-06] MEDS: INSULIN ASPART [NOVOLOG] 3 ML PEN SC ×7 (08:36→20:19)
[2017-08-06] MEDS: HEPARIN 5,000 UNIT/0.5 ML VIAL SC ×2 (08:37→20:20)
[2017-08-06] MEDS: THIAMINE 100 MG TAB PO (08:38)
[2017-08-06] MEDS: MAGNESIUM OXIDE 400 MG TAB PO ×2 (08:38→20:21)
[2017-08-06] MEDS: LACTOBACILLUS RHAMNOSUS CAP PO ×2 (08:38→20:16)
[2017-08-06] MEDS: MULTIVITAMINS THERAPEUTIC TAB PO (08:38)
[2017-08-06] MEDS: LISINOPRIL 5 MG TAB PO (08:39)
[2017-08-06] MEDS: COLLAGENASE 30 GM TUBE TOP (08:39)
[2017-08-06] MEDS: VANCOMYCIN 1.5 GM in DEXTROSE 5% 500 ML IVPB (12:14)
[2017-08-06] MEDS: HYDROCODONE/APAP (10/325) TAB PO (16:23)
[2017-08-06] MEDS: FAMOTIDINE 20 MG TAB PO (20:17)
[2017-08-06] MEDS: INSULIN GLARGINE [LANtus] 3 ML PEN SC (20:18)
[2017-08-07] MEDS: ACCU-CHEK XX (01:55)
[2017-08-07] MEDS: SPIRONOLACTONE 25 MG TAB PO (05:57)
[2017-08-07] MEDS: LEVOFLOXACIN 500 MG TAB PO (05:57)
[2017-08-07] MEDS: LEVOTHYROXINE 50 MCG TAB PO (05:57)
[2017-08-07] MEDS: FUROSEMIDE 40 MG TAB PO ×2 (05:58→17:37)
[2017-08-07 06:09] LABS: ADD MAN DIFF? NO
[2017-08-07 06:19] LABS: BASOPHIL # 0.1 10^3/ul (0.0-0.1); BASOPHILS % 0.8 % (0.0-2.0); EOSINOPHILS # 0.1 10^3/ul (0.0-0.5); EOSINOPHILS % 1.5 % (0.0-7.0); HEMATOCRIT 39.9 % (42.0-52.0); HEMOGLOBIN 13.4 g/dl (14.0-18.0); LYMPHOCYTES # 1.3 10^3/ul (0.8-2.9); LYMPHOCYTES % 18.3 % (15.0-51.0); MEAN CORPUSCULAR HEMOGLOBIN 28.9 pg (29.0-33.0); MEAN CORPUSCULAR HGB CONC 33.6 g/dl (32.0-37.0); MEAN CORPUSCULAR VOLUME 86.2 fl (82.0-101.0); MEAN PLATELET VOLUME 9.9 fl (7.4-10.4); MONOCYTE # 0.8 10^3/ul (0.3-0.9); MONOCYTES % 10.2 % (0.0-11.0); PLATELET COUNT 227 10^3/UL (140-415); RED BLOOD COUNT 4.63 10^6/ul (4.70-6.10); RED CELL DISTRIBUTION WIDTH 16.3 % (11.5-14.5)
[2017-08-07 06:19] LABS: WHITE BLOOD COUNT 7.3 10^3/ul (4.8-10.8)
[2017-08-07 06:57] LABS: ALANINE AMINOTRANSFERASE 71 IU/L (13-69); ALBUMIN 2.7 g/dl (3.3-4.9); ALBUMIN/GLOBULIN RATIO 0.79; ALKALINE PHOSPHATASE 129 IU/L (42-121); ASPARTATE AMINO TRANSFERASE 69 IU/L (15-46); BILIRUBIN,INDIRECT 0.3 mg/dl (0-1.1); BILIRUBIN,TOTAL 0.3 mg/dl (0.2-1.3); BLOOD UREA NITROGEN 20 mg/dl (7-20); CALCIUM 8.5 mg/dl (8.4-10.2); CHLORIDE 93 mmol/L (97-110); CREATININE 0.79 mg/dl (0.61-1.24); GLUCOSE 138 mg/dl (70-220); SODIUM 136 mmol/L (135-144); TOTAL PROTEIN 6.1 g/dl (6.1-8.1)
[2017-08-07 06:58] LABS: BLOOD UREA NITROGEN 20 mg/dl (7-20); CALCIUM 8.5 mg/dl (8.4-10.2); CHLORIDE 92 mmol/L (97-110); CREATININE 0.73 mg/dl (0.61-1.24); GLUCOSE 135 mg/dl (70-220); POTASSIUM 4.2 mmol/L (3.5-5.1); SODIUM 136 mmol/L (135-144)
[2017-08-07 07:07] LABS: ANION GAP 9 (8-16); CARBON DIOXIDE 38 mmol/L (21-31)
[2017-08-07 07:31] LABS: ANION GAP 9 (8-16); CARBON DIOXIDE 39 mmol/L (21-31)
[2017-08-07] MEDS: INSULIN ASPART [NOVOLOG] 3 ML PEN SC ×7 (08:00→20:41)
[2017-08-07] MEDS: LACTOBACILLUS RHAMNOSUS CAP PO ×2 (09:23→20:38)
[2017-08-07] MEDS: LISINOPRIL 5 MG TAB PO (09:23)
[2017-08-07] MEDS: MULTIVITAMINS THERAPEUTIC TAB PO (09:24)
[2017-08-07] MEDS: THIAMINE 100 MG TAB PO (09:24)
[2017-08-07] MEDS: HEPARIN 5,000 UNIT/0.5 ML VIAL SC ×2 (09:24→20:42)
[2017-08-07] MEDS: MAGNESIUM OXIDE 400 MG TAB PO ×2 (09:24→20:38)
[2017-08-07] MEDS: COLLAGENASE 30 GM TUBE TOP (09:27)
[2017-08-07] MEDS: VANCOMYCIN 1.5 GM in DEXTROSE 5% 500 ML IVPB (12:26)
[2017-08-07] MEDS: FAMOTIDINE 20 MG TAB PO (20:38)
[2017-08-07] MEDS: INSULIN GLARGINE [LANtus] 3 ML PEN SC (20:40)
[2017-08-07] MEDS: HYDROCODONE/APAP (10/325) TAB PO (23:29)
[2017-08-08] MEDS: ACCU-CHEK XX (01:55)
[2017-08-08] MEDS: NITROGLYCERIN (SL) 0.4 MG TAB SL ×4 (02:33→20:28)
[2017-08-08] MEDS: LEVOTHYROXINE 50 MCG TAB PO (05:32)
[2017-08-08] MEDS: FUROSEMIDE 40 MG TAB PO ×2 (05:32→17:20)
[2017-08-08] MEDS: LEVOFLOXACIN 500 MG TAB PO (05:32)
[2017-08-08] MEDS: SPIRONOLACTONE 25 MG TAB PO (05:32)
[2017-08-08 06:37] LABS: ADD MAN DIFF? NO
[2017-08-08 06:40] LABS: BASOPHIL # 0.1 10^3/ul (0.0-0.1); BASOPHILS % 0.9 % (0.0-2.0); EOSINOPHILS # 0.2 10^3/ul (0.0-0.5); EOSINOPHILS % 1.9 % (0.0-7.0); HEMATOCRIT 39.9 % (42.0-52.0); HEMOGLOBIN 13.3 g/dl (14.0-18.0); LYMPHOCYTES # 1.6 10^3/ul (0.8-2.9); LYMPHOCYTES % 19.5 % (15.0-51.0); MEAN CORPUSCULAR HEMOGLOBIN 29.1 pg (29.0-33.0); MEAN CORPUSCULAR HGB CONC 33.3 g/dl (32.0-37.0); MEAN CORPUSCULAR VOLUME 87.3 fl (82.0-101.0); MEAN PLATELET VOLUME 10.4 fl (7.4-10.4); MONOCYTE # 0.9 10^3/ul (0.3-0.9); NEUTROPHIL # 5.3 10^3/ul (1.6-7.5); NEUTROPHILS % 65.5 % (39.0-77.0); PLATELET COUNT 242 10^3/UL (140-415); RED BLOOD COUNT 4.57 10^6/ul (4.70-6.10); RED CELL DISTRIBUTION WIDTH 16.7 % (11.5-14.5)
[2017-08-08 07:14] LABS: BLOOD UREA NITROGEN 22 mg/dl (7-20); CALCIUM 8.7 mg/dl (8.4-10.2); CHLORIDE 91 mmol/L (97-110); CREATININE 1.12 mg/dl (0.61-1.24); GLUCOSE 136 mg/dl (70-220); SODIUM 137 mmol/L (135-144)
[2017-08-08 07:27] LABS: ANION GAP 11 (8-16)
[2017-08-08 07:28] LABS: CARBON DIOXIDE 39 mmol/L (21-31)
[2017-08-08] MEDS: INSULIN ASPART [NOVOLOG] 3 ML PEN SC ×7 (08:00→21:00)
[2017-08-08] MEDS: LISINOPRIL 5 MG TAB PO (09:00)
[2017-08-08] MEDS: LACTOBACILLUS RHAMNOSUS CAP PO ×2 (09:13→21:31)
[2017-08-08] MEDS: MAGNESIUM OXIDE 400 MG TAB PO ×2 (09:13→21:33)
[2017-08-08] MEDS: THIAMINE 100 MG TAB PO (09:13)
[2017-08-08] MEDS: MULTIVITAMINS THERAPEUTIC TAB PO (09:13)
[2017-08-08] MEDS: HEPARIN 5,000 UNIT/0.5 ML VIAL SC ×2 (09:14→21:32)
[2017-08-08] MEDS: COLLAGENASE 30 GM TUBE TOP (09:17)
[2017-08-08] MEDS: VANCOMYCIN 1.5 GM in DEXTROSE 5% 500 ML IVPB (12:35)
[2017-08-08] MEDS: HYDROCODONE/APAP (10/325) TAB PO (15:03)
[2017-08-08 15:44] LABS: FREE T4 (FREE THYROXINE) 1.12 ng/dl (0.64-1.79)
[2017-08-08] MEDS: FAMOTIDINE 20 MG TAB PO (21:31)
[2017-08-08] MEDS: INSULIN GLARGINE [LANtus] 3 ML PEN SC (21:33)
[2017-08-09] MEDS: ACCU-CHEK XX (02:00)
[2017-08-09] MEDS: LEVOTHYROXINE 50 MCG TAB PO (05:49)
[2017-08-09] MEDS: SPIRONOLACTONE 25 MG TAB PO (05:49)
[2017-08-09] MEDS: LEVOFLOXACIN 500 MG TAB PO (05:50)
[2017-08-09] MEDS: FUROSEMIDE 40 MG TAB PO ×2 (05:50→17:13)
[2017-08-09 06:07] LABS: ADD MAN DIFF? NO
[2017-08-09 06:39] LABS: BASOPHIL # 0.1 10^3/ul (0.0-0.1); EOSINOPHILS # 0.1 10^3/ul (0.0-0.5); EOSINOPHILS % 1.5 % (0.0-7.0); HEMATOCRIT 40.6 % (42.0-52.0); HEMOGLOBIN 13.6 g/dl (14.0-18.0); LYMPHOCYTES # 1.5 10^3/ul (0.8-2.9); LYMPHOCYTES % 18.3 % (15.0-51.0); MEAN CORPUSCULAR HEMOGLOBIN 28.9 pg (29.0-33.0); MEAN CORPUSCULAR HGB CONC 33.5 g/dl (32.0-37.0); MEAN CORPUSCULAR VOLUME 86.2 fl (82.0-101.0); MEAN PLATELET VOLUME 10.1 fl (7.4-10.4); MONOCYTE # 0.9 10^3/ul (0.3-0.9); MONOCYTES % 10.5 % (0.0-11.0); NEUTROPHIL # 5.6 10^3/ul (1.6-7.5); NEUTROPHILS % 67.4 % (39.0-77.0); PLATELET COUNT 262 10^3/UL (140-415); RED BLOOD COUNT 4.71 10^6/ul (4.70-6.10); RED CELL DISTRIBUTION WIDTH 16.6 % (11.5-14.5)
[2017-08-09 06:39] LABS: WHITE BLOOD COUNT 8.3 10^3/ul (4.8-10.8)
[2017-08-09 06:54] LABS: ANION GAP 10 (8-16); BLOOD UREA NITROGEN 24 mg/dl (7-20); CARBON DIOXIDE 38 mmol/L (21-31); CHLORIDE 93 mmol/L (97-110); GLUCOSE 155 mg/dl (70-220); POTASSIUM 4.5 mmol/L (3.5-5.1); SODIUM 136 mmol/L (135-144)
[2017-08-09 07:40] LABS: CALCIUM 8.8 mg/dl (8.4-10.2)
[2017-08-09] MEDS: INSULIN ASPART [NOVOLOG] 3 ML PEN SC ×7 (08:00→21:18)
[2017-08-09] MEDS: HEPARIN 5,000 UNIT/0.5 ML VIAL SC ×2 (08:13→21:19)
[2017-08-09] MEDS: MULTIVITAMINS THERAPEUTIC TAB PO (08:15)
[2017-08-09] MEDS: LACTOBACILLUS RHAMNOSUS CAP PO ×2 (08:15→21:19)
[2017-08-09] MEDS: MAGNESIUM OXIDE 400 MG TAB PO ×2 (08:15→21:20)
[2017-08-09] MEDS: LISINOPRIL 5 MG TAB PO (08:15)
[2017-08-09] MEDS: THIAMINE 100 MG TAB PO (08:15)
[2017-08-09 12:58] LABS: VANCOMYCIN,TROUGH 12.3 ug/ml (10.0-20.0)
[2017-08-09] MEDS: VANCOMYCIN 1.5 GM in SOD CHLORIDE 0.9% 250 ML IVPB (13:41)
[2017-08-09] MEDS: NITROGLYCERIN (SL) 0.4 MG TAB SL ×2 (14:48→16:42)
[2017-08-09] MEDS: COLLAGENASE 30 GM TUBE TOP (15:00)
[2017-08-09] MEDS: INSULIN GLARGINE [LANtus] 3 ML PEN SC (21:17)
[2017-08-09] MEDS: FAMOTIDINE 20 MG TAB PO (21:20)
[2017-08-09] MEDS: HYDROCODONE/APAP (10/325) TAB PO (21:32)
[2017-08-10] MEDS: ACCU-CHEK XX (02:00)
[2017-08-10] MEDS: LEVOTHYROXINE 50 MCG TAB PO (05:30)
[2017-08-10] MEDS: FUROSEMIDE 40 MG TAB PO ×2 (05:30→17:50)
[2017-08-10] MEDS: LEVOFLOXACIN 500 MG TAB PO (05:30)
[2017-08-10] MEDS: SPIRONOLACTONE 25 MG TAB PO (05:31)
[2017-08-10 07:11] LABS: ADD MAN DIFF? NO
[2017-08-10 07:20] LABS: BASOPHIL # 0.1 10^3/ul (0.0-0.1); BASOPHILS % 1.1 % (0.0-2.0); EOSINOPHILS # 0.2 10^3/ul (0.0-0.5); EOSINOPHILS % 2.1 % (0.0-7.0); HEMOGLOBIN 13.8 g/dl (14.0-18.0); LYMPHOCYTES # 1.8 10^3/ul (0.8-2.9); LYMPHOCYTES % 22.7 % (15.0-51.0); MEAN CORPUSCULAR HGB CONC 33.7 g/dl (32.0-37.0); MEAN CORPUSCULAR VOLUME 86.1 fl (82.0-101.0); MEAN PLATELET VOLUME 10.3 fl (7.4-10.4); MONOCYTES % 11.9 % (0.0-11.0); NEUTROPHIL # 4.9 10^3/ul (1.6-7.5); NEUTROPHILS % 61.1 % (39.0-77.0); PLATELET COUNT 286 10^3/UL (140-415); RED BLOOD COUNT 4.76 10^6/ul (4.70-6.10); RED CELL DISTRIBUTION WIDTH 17.1 % (11.5-14.5)
[2017-08-10 07:20] LABS: WHITE BLOOD COUNT 8.1 10^3/ul (4.8-10.8)
[2017-08-10 07:35] LABS: ANION GAP 10 (8-16); BLOOD UREA NITROGEN 31 mg/dl (7-20); CALCIUM 9.1 mg/dl (8.4-10.2); CARBON DIOXIDE 37 mmol/L (21-31); CHLORIDE 93 mmol/L (97-110); CREATININE 1.01 mg/dl (0.61-1.24); GLUCOSE 128 mg/dl (70-220); POTASSIUM 4.5 mmol/L (3.5-5.1); SODIUM 135 mmol/L (135-144)
[2017-08-10] MEDS: INSULIN ASPART [NOVOLOG] 3 ML PEN SC ×7 (08:01→20:55)
[2017-08-10] MEDS: COLLAGENASE 30 GM TUBE TOP ×2 (09:00→14:37)
[2017-08-10] MEDS: MAGNESIUM OXIDE 400 MG TAB PO ×2 (09:03→20:51)
[2017-08-10] MEDS: LISINOPRIL 5 MG TAB PO (09:03)
[2017-08-10] MEDS: THIAMINE 100 MG TAB PO (09:03)
[2017-08-10] MEDS: MULTIVITAMINS THERAPEUTIC TAB PO (09:03)
[2017-08-10] MEDS: LACTOBACILLUS RHAMNOSUS CAP PO ×2 (09:03→21:00)
[2017-08-10] MEDS: HEPARIN 5,000 UNIT/0.5 ML VIAL SC ×2 (09:05→21:07)
[2017-08-10] MEDS: HYDROCODONE/APAP (10/325) TAB PO ×2 (13:20→22:00)
[2017-08-10] MEDS: VANCOMYCIN 1.75 GM in D5W 500 ML IVPB (13:21)
[2017-08-10] MEDS: NITROGLYCERIN (SL) 0.4 MG TAB SL ×3 (14:19→15:05)
[2017-08-10] MEDS: morphine 2 MG INJ IV (15:39)
[2017-08-10 16:39] LABS: TROPONIN-I 0.042 ng/ml (0.00-0.12)
[2017-08-10] MEDS: FAMOTIDINE 20 MG TAB PO (20:51)
[2017-08-10] MEDS: INSULIN GLARGINE [LANtus] 3 ML PEN SC (22:58)
[2017-08-11] MEDS: ACCU-CHEK XX (02:00)
[2017-08-11] MEDS: HYDROCODONE/APAP (10/325) TAB PO ×2 (02:25→22:29)
[2017-08-11] MEDS: NITROGLYCERIN (SL) 0.4 MG TAB SL ×6 (03:51→22:27)
[2017-08-11] MEDS: LEVOTHYROXINE 50 MCG TAB PO (06:29)
[2017-08-11] MEDS: LEVOFLOXACIN 500 MG TAB PO (06:29)
[2017-08-11] MEDS: FUROSEMIDE 40 MG TAB PO ×2 (06:29→17:26)
[2017-08-11] MEDS: SPIRONOLACTONE 25 MG TAB PO (06:30)
[2017-08-11 07:11] LABS: ADD MAN DIFF? NO
[2017-08-11 07:13] LABS: WHITE BLOOD COUNT 8.4 10^3/ul (4.8-10.8)
[2017-08-11 07:13] LABS: BASOPHIL # 0.1 10^3/ul (0.0-0.1); BASOPHILS % 1.1 % (0.0-2.0); EOSINOPHILS # 0.2 10^3/ul (0.0-0.5); EOSINOPHILS % 2.6 % (0.0-7.0); HEMATOCRIT 42.4 % (42.0-52.0); HEMOGLOBIN 13.9 g/dl (14.0-18.0); LYMPHOCYTES # 1.6 10^3/ul (0.8-2.9); LYMPHOCYTES % 18.7 % (15.0-51.0); MEAN CORPUSCULAR HEMOGLOBIN 28.7 pg (29.0-33.0); MEAN CORPUSCULAR HGB CONC 32.8 g/dl (32.0-37.0); MEAN CORPUSCULAR VOLUME 87.6 fl (82.0-101.0); MEAN PLATELET VOLUME 9.7 fl (7.4-10.4); MONOCYTE # 1.1 10^3/ul (0.3-0.9); NEUTROPHIL # 5.3 10^3/ul (1.6-7.5); NEUTROPHILS % 63.4 % (39.0-77.0); PLATELET COUNT 292 10^3/UL (140-415); RED BLOOD COUNT 4.84 10^6/ul (4.70-6.10); RED CELL DISTRIBUTION WIDTH 16.8 % (11.5-14.5)
[2017-08-11] MEDS: INSULIN ASPART [NOVOLOG] 3 ML PEN SC ×7 (07:55→20:44)
[2017-08-11 07:56] LABS: BLOOD UREA NITROGEN 31 mg/dl (7-20); CALCIUM 9.2 mg/dl (8.4-10.2); CHLORIDE 91 mmol/L (97-110); CREATININE 1.14 mg/dl (0.61-1.24); GLUCOSE 97 mg/dl (70-220); POTASSIUM 4.9 mmol/L (3.5-5.1); SODIUM 138 mmol/L (135-144)
[2017-08-11 07:58] LABS: MAGNESIUM 2.3 mg/dl (1.7-2.5)
[2017-08-11 07:58] LABS: PHOSPHORUS 5.2 mg/dl (2.5-4.9)
[2017-08-11 07:59] LABS: ANION GAP 12 (8-16)
[2017-08-11 08:06] LABS: CARBON DIOXIDE 40 mmol/L (21-31)
[2017-08-11] MEDS: LACTOBACILLUS RHAMNOSUS CAP PO ×2 (08:20→20:39)
[2017-08-11] MEDS: MAGNESIUM OXIDE 400 MG TAB PO ×2 (08:20→20:39)
[2017-08-11] MEDS: MULTIVITAMINS THERAPEUTIC TAB PO (08:20)
[2017-08-11] MEDS: THIAMINE 100 MG TAB PO (08:20)
[2017-08-11] MEDS: LISINOPRIL 5 MG TAB PO (08:21)
[2017-08-11] MEDS: COLLAGENASE 30 GM TUBE TOP (08:22)
[2017-08-11] MEDS: HEPARIN 5,000 UNIT/0.5 ML VIAL SC ×2 (08:28→20:41)
[2017-08-11] MEDS: VANCOMYCIN 1.75 GM in D5W 500 ML IVPB (13:40)
[2017-08-11] MEDS: FAMOTIDINE 20 MG TAB PO (20:39)
[2017-08-11] MEDS: INSULIN GLARGINE [LANtus] 3 ML PEN SC (20:41)
[2017-08-11] MEDS: morphine 2 MG INJ IV (23:38)
[2017-08-12] MEDS: ACCU-CHEK XX (01:42)
[2017-08-12] MEDS: NITROGLYCERIN (SL) 0.4 MG TAB SL (03:32)
[2017-08-12] MEDS: ASPIRIN (EC) 81 MG TAB PO (05:21)
[2017-08-12] MEDS: LEVOTHYROXINE 50 MCG TAB PO (05:21)
[2017-08-12] MEDS: SPIRONOLACTONE 25 MG TAB PO (05:21)
[2017-08-12] MEDS: LEVOFLOXACIN 500 MG TAB PO (05:22)
[2017-08-12] MEDS: FUROSEMIDE 40 MG TAB PO ×2 (05:23→17:51)
[2017-08-12] MEDS: morphine 2 MG INJ IV ×2 (05:51→08:33)
[2017-08-12 07:06] LABS: TROPONIN-I 0.059 ng/ml (0.00-0.12)
[2017-08-12] MEDS: INSULIN ASPART [NOVOLOG] 3 ML PEN SC ×7 (07:55→21:00)
[2017-08-12] MEDS: THIAMINE 100 MG TAB PO (08:32)
[2017-08-12] MEDS: MAGNESIUM OXIDE 400 MG TAB PO ×2 (08:32→21:03)
[2017-08-12] MEDS: MULTIVITAMINS THERAPEUTIC TAB PO (08:32)
[2017-08-12] MEDS: LACTOBACILLUS RHAMNOSUS CAP PO ×2 (08:32→20:55)
[2017-08-12] MEDS: HEPARIN 5,000 UNIT/0.5 ML VIAL SC ×2 (09:01→20:59)
[2017-08-12] MEDS: COLLAGENASE 30 GM TUBE TOP (09:04)
[2017-08-12] MEDS: LISINOPRIL 5 MG TAB PO (09:04)
[2017-08-12] MEDS: VANCOMYCIN 1.75 GM in D5W 500 ML IVPB (13:18)
[2017-08-12 15:49] LABS: TROPONIN-I 0.042 ng/ml (0.00-0.12)
[2017-08-12] MEDS: INSULIN GLARGINE [LANtus] 3 ML PEN SC (20:57)
[2017-08-12] MEDS: FAMOTIDINE 20 MG TAB PO (21:03)
[2017-08-13] MEDS: LORAZEPAM 0.5 MG TAB PO (01:12)
[2017-08-13] MEDS: HYDROCODONE/APAP (10/325) TAB PO ×2 (01:12→22:05)
[2017-08-13] MEDS: ACCU-CHEK XX (01:19)
[2017-08-13] MEDS: FUROSEMIDE 40 MG TAB PO (05:40)
[2017-08-13] MEDS: LEVOFLOXACIN 500 MG TAB PO (05:41)
[2017-08-13] MEDS: LEVOTHYROXINE 50 MCG TAB PO (05:41)
[2017-08-13] MEDS: SPIRONOLACTONE 25 MG TAB PO (05:41)
[2017-08-13 06:28] LABS: ADD MAN DIFF? NO
[2017-08-13 06:36] LABS: BASOPHIL # 0.1 10^3/ul (0.0-0.1); BASOPHILS % 0.9 % (0.0-2.0); EOSINOPHILS # 0.2 10^3/ul (0.0-0.5); HEMATOCRIT 37.8 % (42.0-52.0); HEMOGLOBIN 12.7 g/dl (14.0-18.0); LYMPHOCYTES # 1.9 10^3/ul (0.8-2.9); LYMPHOCYTES % 21.8 % (15.0-51.0); MEAN CORPUSCULAR HEMOGLOBIN 28.7 pg (29.0-33.0); MEAN CORPUSCULAR HGB CONC 33.6 g/dl (32.0-37.0); MEAN CORPUSCULAR VOLUME 85.5 fl (82.0-101.0); MEAN PLATELET VOLUME 10.1 fl (7.4-10.4); MONOCYTES % 11.8 % (0.0-11.0); NEUTROPHIL # 5.4 10^3/ul (1.6-7.5); NEUTROPHILS % 62.6 % (39.0-77.0); PLATELET COUNT 298 10^3/UL (140-415); RED BLOOD COUNT 4.42 10^6/ul (4.70-6.10); RED CELL DISTRIBUTION WIDTH 16.7 % (11.5-14.5)
[2017-08-13 06:36] LABS: WHITE BLOOD COUNT 8.7 10^3/ul (4.8-10.8)
[2017-08-13 06:56] LABS: ANION GAP 10 (8-16); BLOOD UREA NITROGEN 40 mg/dl (7-20); CARBON DIOXIDE 39 mmol/L (21-31); CHLORIDE 89 mmol/L (97-110); CREATININE 1.12 mg/dl (0.61-1.24); GLUCOSE 141 mg/dl (70-220); POTASSIUM 5.2 mmol/L (3.5-5.1); SODIUM 133 mmol/L (135-144)
[2017-08-13] MEDS: INSULIN ASPART [NOVOLOG] 3 ML PEN SC ×7 (07:55→20:24)
[2017-08-13] MEDS: LACTOBACILLUS RHAMNOSUS CAP PO ×2 (08:22→20:07)
[2017-08-13] MEDS: MULTIVITAMINS THERAPEUTIC TAB PO (08:22)
[2017-08-13] MEDS: LISINOPRIL 5 MG TAB PO (08:22)
[2017-08-13] MEDS: MAGNESIUM OXIDE 400 MG TAB PO ×2 (08:22→20:07)
[2017-08-13] MEDS: THIAMINE 100 MG TAB PO (08:22)
[2017-08-13] MEDS: HEPARIN 5,000 UNIT/0.5 ML VIAL SC ×2 (08:26→20:25)
[2017-08-13] MEDS: COLLAGENASE 30 GM TUBE TOP (08:26)
[2017-08-13] MEDS: VANCOMYCIN 1.75 GM in D5W 500 ML IVPB (12:53)
[2017-08-13] MEDS: CEFTRIAXONE 1 GM/50 ML (PMX) 50 ML IVPB (17:35)
[2017-08-13] MEDS: FAMOTIDINE 20 MG TAB PO (20:08)
[2017-08-13] MEDS: INSULIN GLARGINE [LANtus] 3 ML PEN SC (20:24)
[2017-08-14] MEDS: ACCU-CHEK XX (02:41)
[2017-08-14] MEDS: LEVOTHYROXINE 50 MCG TAB PO (05:25)
[2017-08-14 07:31] LABS: ADD MAN DIFF? NO
[2017-08-14 07:36] LABS: BASOPHIL # 0.1 10^3/ul (0.0-0.1); BASOPHILS % 0.8 % (0.0-2.0); EOSINOPHILS # 0.1 10^3/ul (0.0-0.5); EOSINOPHILS % 1.5 % (0.0-7.0); HEMATOCRIT 39.5 % (42.0-52.0); LYMPHOCYTES # 1.7 10^3/ul (0.8-2.9); LYMPHOCYTES % 23.3 % (15.0-51.0); MEAN CORPUSCULAR HEMOGLOBIN 28.4 pg (29.0-33.0); MEAN CORPUSCULAR HGB CONC 32.9 g/dl (32.0-37.0); MEAN CORPUSCULAR VOLUME 86.4 fl (82.0-101.0); MEAN PLATELET VOLUME 9.7 fl (7.4-10.4); MONOCYTE # 1.1 10^3/ul (0.3-0.9); MONOCYTES % 15.1 % (0.0-11.0); NEUTROPHIL # 4.3 10^3/ul (1.6-7.5); NEUTROPHILS % 58.3 % (39.0-77.0); PLATELET COUNT 319 10^3/UL (140-415); RED BLOOD COUNT 4.57 10^6/ul (4.70-6.10); RED CELL DISTRIBUTION WIDTH 16.6 % (11.5-14.5)
[2017-08-14 07:36] LABS: WHITE BLOOD COUNT 7.3 10^3/ul (4.8-10.8)
[2017-08-14] MEDS: MAGNESIUM OXIDE 400 MG TAB PO (08:01)
[2017-08-14] MEDS: LACTOBACILLUS RHAMNOSUS CAP PO (08:03)
[2017-08-14] MEDS: MULTIVITAMINS THERAPEUTIC TAB PO (08:03)
[2017-08-14] MEDS: THIAMINE 100 MG TAB PO (08:03)
[2017-08-14 08:04] LABS: ANION GAP 11 (8-16); BLOOD UREA NITROGEN 33 mg/dl (7-20); CALCIUM 9.6 mg/dl (8.4-10.2); CARBON DIOXIDE 36 mmol/L (21-31); CHLORIDE 91 mmol/L (97-110); CREATININE 1.14 mg/dl (0.61-1.24); GLUCOSE 175 mg/dl (70-220); POTASSIUM 5.3 mmol/L (3.5-5.1); SODIUM 133 mmol/L (135-144)
[2017-08-14] MEDS: INSULIN ASPART [NOVOLOG] 3 ML PEN SC ×7 (08:04→20:14)
[2017-08-14] MEDS: HEPARIN 5,000 UNIT/0.5 ML VIAL SC ×2 (08:06→20:27)
[2017-08-14] MEDS: COLLAGENASE 30 GM TUBE TOP (08:06)
[2017-08-14 13:17] LABS: VANCOMYCIN,TROUGH 11.3 ug/ml (10.0-20.0)
[2017-08-14] MEDS: VANCOMYCIN 1.75 GM in D5W 500 ML IVPB (13:27)
[2017-08-14] MEDS: LIDOCAINE 1% (MPF) 5 ML VIAL SC (13:46)
[2017-08-14] MEDS: CEFTRIAXONE 1 GM/50 ML (PMX) 50 ML IVPB (17:41)
[2017-08-14] MEDS: NITROGLYCERIN (SL) 0.4 MG TAB SL (20:00)
[2017-08-14] MEDS: INSULIN GLARGINE [LANtus] 3 ML PEN SC (20:28)
[2017-08-14] MEDS: HYDROCODONE/APAP (10/325) TAB PO (21:46)
[2017-08-15] MEDS: ACCU-CHEK XX (01:48)
[2017-08-15] MEDS: LEVOTHYROXINE 50 MCG TAB PO (05:24)
[2017-08-15] MEDS: INSULIN ASPART [NOVOLOG] 3 ML PEN SC ×7 (07:55→20:03)
[2017-08-15] MEDS: MULTIVITAMINS THERAPEUTIC TAB PO (08:07)
[2017-08-15] MEDS: COLLAGENASE 30 GM TUBE TOP (08:09)
[2017-08-15] MEDS: HEPARIN 5,000 UNIT/0.5 ML VIAL SC ×2 (08:09→20:24)
[2017-08-15 08:29] LABS: ADD MAN DIFF? NO
[2017-08-15 08:37] LABS: WHITE BLOOD COUNT 7.5 10^3/ul (4.8-10.8)
[2017-08-15 08:37] LABS: BASOPHIL # 0.1 10^3/ul (0.0-0.1); BASOPHILS % 1.2 % (0.0-2.0); EOSINOPHILS # 0.2 10^3/ul (0.0-0.5); EOSINOPHILS % 2.8 % (0.0-7.0); HEMATOCRIT 38.7 % (42.0-52.0); HEMOGLOBIN 13.1 g/dl (14.0-18.0); LYMPHOCYTES # 1.6 10^3/ul (0.8-2.9); LYMPHOCYTES % 21.6 % (15.0-51.0); MEAN CORPUSCULAR HEMOGLOBIN 28.9 pg (29.0-33.0); MEAN CORPUSCULAR HGB CONC 33.9 g/dl (32.0-37.0); MEAN CORPUSCULAR VOLUME 85.2 fl (82.0-101.0); MEAN PLATELET VOLUME 9.9 fl (7.4-10.4); MONOCYTE # 1.3 10^3/ul (0.3-0.9); NEUTROPHIL # 4.2 10^3/ul (1.6-7.5); NEUTROPHILS % 56.1 % (39.0-77.0); PLATELET COUNT 335 10^3/UL (140-415); RED BLOOD COUNT 4.54 10^6/ul (4.70-6.10); RED CELL DISTRIBUTION WIDTH 16.7 % (11.5-14.5)
[2017-08-15 08:55] LABS: ANION GAP 10 (8-16); BLOOD UREA NITROGEN 30 mg/dl (7-20); CALCIUM 9.6 mg/dl (8.4-10.2); CARBON DIOXIDE 37 mmol/L (21-31); CHLORIDE 95 mmol/L (97-110); CREATININE 1.19 mg/dl (0.61-1.24); GLUCOSE 107 mg/dl (70-220); POTASSIUM 5.4 mmol/L (3.5-5.1); SODIUM 137 mmol/L (135-144)
[2017-08-15] MEDS: VANCOMYCIN 750 MG in DEXTROSE 5% 150 ML IVPB ×2 (09:52→20:05)
[2017-08-15] MEDS: LIDOCAINE 1% (MPF) 5 ML VIAL SC (13:46)
[2017-08-15] MEDS: CEFTRIAXONE 1 GM/50 ML (PMX) 50 ML IVPB (14:07)
[2017-08-15] MEDS: ISOSORBIDE DINITRATE 10 MG TAB PO ×2 (14:07→20:10)
[2017-08-15 14:10] LABS: B-TYPE NATRIURETIC PEPTIDE 3610 PG/ML (0-125)
[2017-08-15] MEDS: INSULIN GLARGINE [LANtus] 3 ML PEN SC (20:27)
[2017-08-15] MEDS: HYDROCODONE/APAP (10/325) TAB PO (22:24)
[2017-08-16] MEDS: ACCU-CHEK XX (01:21)
[2017-08-16] MEDS: LEVOTHYROXINE 50 MCG TAB PO (05:09)
[2017-08-16 06:11] LABS: ADD MAN DIFF? NO
[2017-08-16 06:20] LABS: WHITE BLOOD COUNT 6.6 10^3/ul (4.8-10.8)
[2017-08-16 06:20] LABS: BASOPHIL # 0.1 10^3/ul (0.0-0.1); BASOPHILS % 1.2 % (0.0-2.0); EOSINOPHILS # 0.2 10^3/ul (0.0-0.5); EOSINOPHILS % 3.5 % (0.0-7.0); HEMATOCRIT 34.9 % (42.0-52.0); HEMOGLOBIN 11.8 g/dl (14.0-18.0); LYMPHOCYTES # 1.9 10^3/ul (0.8-2.9); LYMPHOCYTES % 28.1 % (15.0-51.0); MEAN CORPUSCULAR HGB CONC 33.8 g/dl (32.0-37.0); MEAN CORPUSCULAR VOLUME 85.7 fl (82.0-101.0); MEAN PLATELET VOLUME 9.8 fl (7.4-10.4); MONOCYTES % 14.7 % (0.0-11.0); NEUTROPHIL # 3.4 10^3/ul (1.6-7.5); NEUTROPHILS % 51.6 % (39.0-77.0); PLATELET COUNT 312 10^3/UL (140-415); RED BLOOD COUNT 4.07 10^6/ul (4.70-6.10); RED CELL DISTRIBUTION WIDTH 16.5 % (11.5-14.5)
[2017-08-16 06:55] LABS: ANION GAP 11 (8-16); BLOOD UREA NITROGEN 28 mg/dl (7-20); CALCIUM 9.1 mg/dl (8.4-10.2); CARBON DIOXIDE 34 mmol/L (21-31); CHLORIDE 98 mmol/L (97-110); CREATININE 0.95 mg/dl (0.61-1.24); GLUCOSE 101 mg/dl (70-220); POTASSIUM 4.9 mmol/L (3.5-5.1); SODIUM 138 mmol/L (135-144)
[2017-08-16] MEDS: INSULIN ASPART [NOVOLOG] 3 ML PEN SC ×7 (07:42→20:28)
[2017-08-16] MEDS: VANCOMYCIN 750 MG in DEXTROSE 5% 150 ML IVPB ×2 (08:03→20:16)
[2017-08-16] MEDS: MULTIVITAMINS THERAPEUTIC TAB PO (08:48)
[2017-08-16] MEDS: ISOSORBIDE DINITRATE 10 MG TAB PO ×3 (08:49→20:15)
[2017-08-16] MEDS: HEPARIN 5,000 UNIT/0.5 ML VIAL SC ×2 (08:51→20:27)
[2017-08-16] MEDS: COLLAGENASE 30 GM TUBE TOP (08:52)
[2017-08-16] MEDS: NITROGLYCERIN (SL) 0.4 MG TAB SL ×3 (11:20→11:44)
[2017-08-16] MEDS: REGADENOSON 0.4 MG/5 ML SYG (12:00)
[2017-08-16] MEDS: CEFTRIAXONE 1 GM/50 ML (PMX) 50 ML IVPB (14:07)
[2017-08-16 19:30] LABS: VANCOMYCIN,TROUGH 13.1 ug/ml (10.0-20.0)
[2017-08-16] MEDS: RANOLAZINE (SR) 500 MG TAB PO (20:15)
[2017-08-16] MEDS: INSULIN GLARGINE [LANtus] 3 ML PEN SC (20:27)
[2017-08-17] MEDS: HYDROCODONE/APAP (10/325) TAB PO ×2 (00:49→23:30)
[2017-08-17] MEDS: ACCU-CHEK XX (02:00)
[2017-08-17] MEDS: LEVOTHYROXINE 50 MCG TAB PO (05:07)
[2017-08-17] MEDS: INSULIN ASPART [NOVOLOG] 3 ML PEN SC ×7 (07:55→20:56)
[2017-08-17] MEDS: VANCOMYCIN 750 MG in DEXTROSE 5% 150 ML IVPB ×2 (08:08→21:46)
[2017-08-17 08:15] LABS: ADD MAN DIFF? NO
[2017-08-17 08:25] LABS: WHITE BLOOD COUNT 6.1 10^3/ul (4.8-10.8)
[2017-08-17 08:25] LABS: BASOPHIL # 0.1 10^3/ul (0.0-0.1); BASOPHILS % 1.2 % (0.0-2.0); EOSINOPHILS # 0.3 10^3/ul (0.0-0.5); EOSINOPHILS % 4.5 % (0.0-7.0); HEMATOCRIT 35.6 % (42.0-52.0); LYMPHOCYTES # 1.6 10^3/ul (0.8-2.9); LYMPHOCYTES % 26.4 % (15.0-51.0); MEAN CORPUSCULAR HEMOGLOBIN 29.1 pg (29.0-33.0); MEAN CORPUSCULAR HGB CONC 33.7 g/dl (32.0-37.0); MEAN CORPUSCULAR VOLUME 86.2 fl (82.0-101.0); MEAN PLATELET VOLUME 9.7 fl (7.4-10.4); NEUTROPHIL # 3.1 10^3/ul (1.6-7.5); NEUTROPHILS % 50.9 % (39.0-77.0); PLATELET COUNT 322 10^3/UL (140-415); RED BLOOD COUNT 4.13 10^6/ul (4.70-6.10); RED CELL DISTRIBUTION WIDTH 16.6 % (11.5-14.5)
[2017-08-17] MEDS: MULTIVITAMINS THERAPEUTIC TAB PO (08:29)
[2017-08-17] MEDS: RANOLAZINE (SR) 500 MG TAB PO ×2 (08:29→21:47)
[2017-08-17] MEDS: ISOSORBIDE DINITRATE 10 MG TAB PO ×3 (08:29→21:47)
[2017-08-17] MEDS: COLLAGENASE 30 GM TUBE TOP (08:30)
[2017-08-17] MEDS: HEPARIN 5,000 UNIT/0.5 ML VIAL SC ×2 (08:31→20:56)
[2017-08-17 08:46] LABS: ANION GAP 13 (8-16); BLOOD UREA NITROGEN 24 mg/dl (7-20); CALCIUM 9.2 mg/dl (8.4-10.2); CARBON DIOXIDE 31 mmol/L (21-31); CHLORIDE 100 mmol/L (97-110); CREATININE 0.86 mg/dl (0.61-1.24); GLUCOSE 91 mg/dl (70-220); POTASSIUM 4.6 mmol/L (3.5-5.1); SODIUM 139 mmol/L (135-144)
[2017-08-17] MEDS: NITROGLYCERIN (SL) 0.4 MG TAB SL ×2 (10:22→10:39)
[2017-08-17] MEDS: CEFTRIAXONE 1 GM/50 ML (PMX) 50 ML IVPB (14:31)
[2017-08-17] MEDS: INSULIN GLARGINE [LANtus] 3 ML PEN SC (20:55)
[2017-08-18] MEDS: NITROGLYCERIN (SL) 0.4 MG TAB SL (00:37)
[2017-08-18] MEDS: ACCU-CHEK XX ×2 (02:00→23:01)
[2017-08-18] MEDS: LEVOTHYROXINE 50 MCG TAB PO (05:25)
[2017-08-18] MEDS: INSULIN ASPART [NOVOLOG] 3 ML PEN SC ×7 (08:00→20:51)
[2017-08-18] MEDS: RANOLAZINE (SR) 500 MG TAB PO ×2 (08:38→20:50)
[2017-08-18] MEDS: LISINOPRIL 5 MG TAB PO (08:40)
[2017-08-18] MEDS: ISOSORBIDE DINITRATE 10 MG TAB PO ×3 (08:41→20:50)
[2017-08-18] MEDS: COLLAGENASE 30 GM TUBE TOP (08:43)
[2017-08-18] MEDS: HEPARIN 5,000 UNIT/0.5 ML VIAL SC ×2 (08:43→20:51)
[2017-08-18] MEDS: VANCOMYCIN 750 MG in DEXTROSE 5% 150 ML IVPB ×2 (08:51→20:36)
[2017-08-18] MEDS: MULTIVITAMINS THERAPEUTIC TAB PO (09:13)
[2017-08-18] MEDS: CEFTRIAXONE 1 GM/50 ML (PMX) 50 ML IVPB (14:10)
[2017-08-18] MEDS: HYDROCODONE/APAP (10/325) TAB PO (14:16)
[2017-08-18] MEDS: INSULIN GLARGINE [LANtus] 3 ML PEN SC (20:45)
[2017-08-19] MEDS: LEVOTHYROXINE 50 MCG TAB PO (05:33)
[2017-08-19 05:43] LABS: BLOOD UREA NITROGEN 22 mg/dl (7-20)
[2017-08-19 05:43] LABS: CREATININE 0.91 mg/dl (0.61-1.24)
[2017-08-19] MEDS: INSULIN ASPART [NOVOLOG] 3 ML PEN SC ×7 (08:00→21:00)
[2017-08-19] MEDS: HEPARIN 5,000 UNIT/0.5 ML VIAL SC ×2 (08:35→20:37)
[2017-08-19] MEDS: VANCOMYCIN 750 MG in DEXTROSE 5% 150 ML IVPB ×2 (08:40→21:03)
[2017-08-19] MEDS: LISINOPRIL 5 MG TAB PO (08:42)
[2017-08-19] MEDS: MULTIVITAMINS THERAPEUTIC TAB PO (08:42)
[2017-08-19] MEDS: ISOSORBIDE DINITRATE 10 MG TAB PO ×3 (08:42→20:35)
[2017-08-19] MEDS: RANOLAZINE (SR) 500 MG TAB PO ×2 (08:42→20:34)
[2017-08-19] MEDS: COLLAGENASE 30 GM TUBE TOP (08:43)
[2017-08-19] MEDS: CEFTRIAXONE 1 GM/50 ML (PMX) 50 ML IVPB (14:50)
[2017-08-19] MEDS: INSULIN GLARGINE [LANtus] 3 ML PEN SC (20:15)
[2017-08-19 20:28] LABS: VANCOMYCIN,TROUGH 13.6 ug/ml (10.0-20.0)
[2017-08-20] MEDS: ACCU-CHEK XX (02:00)
[2017-08-20] MEDS: LEVOTHYROXINE 50 MCG TAB PO (05:18)
[2017-08-20 07:04] LABS: ANION GAP 14 (8-16); BLOOD UREA NITROGEN 21 mg/dl (7-20); CALCIUM 9.5 mg/dl (8.4-10.2); CARBON DIOXIDE 31 mmol/L (21-31); CHLORIDE 102 mmol/L (97-110); CREATININE 0.87 mg/dl (0.61-1.24); GLUCOSE 107 mg/dl (70-220); PHOSPHORUS 4.5 mg/dl (2.5-4.9); POTASSIUM 4.5 mmol/L (3.5-5.1); SODIUM 142 mmol/L (135-144)
[2017-08-20] MEDS: INSULIN ASPART [NOVOLOG] 3 ML PEN SC ×7 (08:00→21:14)
[2017-08-20] MEDS: ISOSORBIDE DINITRATE 10 MG TAB PO ×3 (08:32→21:07)
[2017-08-20] MEDS: LISINOPRIL 5 MG TAB PO (08:32)
[2017-08-20] MEDS: MULTIVITAMINS THERAPEUTIC TAB PO (08:32)
[2017-08-20] MEDS: RANOLAZINE (SR) 500 MG TAB PO ×2 (08:33→21:06)
[2017-08-20] MEDS: VANCOMYCIN 750 MG in DEXTROSE 5% 150 ML IVPB ×2 (08:33→20:09)
[2017-08-20] MEDS: HEPARIN 5,000 UNIT/0.5 ML VIAL SC ×2 (08:36→21:11)
[2017-08-20] MEDS: COLLAGENASE 30 GM TUBE TOP (08:37)
[2017-08-20] MEDS: CEFTRIAXONE 1 GM/50 ML (PMX) 50 ML IVPB (14:37)
[2017-08-20] MEDS: INSULIN GLARGINE [LANtus] 3 ML PEN SC (20:09)
[2017-08-21] MEDS: ACCU-CHEK XX (02:00)
[2017-08-21] MEDS: LEVOTHYROXINE 50 MCG TAB PO (06:16)
[2017-08-21] MEDS: INSULIN ASPART [NOVOLOG] 3 ML PEN SC ×7 (08:00→20:55)
[2017-08-21] MEDS: COLLAGENASE 30 GM TUBE TOP (09:00)
[2017-08-21] MEDS: MULTIVITAMINS THERAPEUTIC TAB PO (09:28)
[2017-08-21] MEDS: RANOLAZINE (SR) 500 MG TAB PO ×2 (09:28→21:01)
[2017-08-21] MEDS: ISOSORBIDE DINITRATE 10 MG TAB PO ×3 (09:29→21:03)
[2017-08-21] MEDS: LISINOPRIL 5 MG TAB PO (09:29)
[2017-08-21] MEDS: HEPARIN 5,000 UNIT/0.5 ML VIAL SC ×2 (09:31→20:59)
[2017-08-21] MEDS: VANCOMYCIN 750 MG in DEXTROSE 5% 150 ML IVPB ×2 (10:07→20:54)
[2017-08-21] MEDS: CEFTRIAXONE 1 GM/50 ML (PMX) 50 ML IVPB (14:21)
[2017-08-21] MEDS: INSULIN GLARGINE [LANtus] 3 ML PEN SC (20:59)
[2017-08-22] MEDS: ACCU-CHEK XX (02:00)
[2017-08-22] MEDS: LEVOTHYROXINE 50 MCG TAB PO (06:10)
[2017-08-22] MEDS: INSULIN ASPART [NOVOLOG] 3 ML PEN SC ×7 (07:35→21:06)
[2017-08-22] MEDS: VANCOMYCIN 750 MG in DEXTROSE 5% 150 ML IVPB ×2 (08:08→20:01)
[2017-08-22] MEDS: ISOSORBIDE DINITRATE 10 MG TAB PO ×3 (08:08→21:00)
[2017-08-22] MEDS: RANOLAZINE (SR) 500 MG TAB PO ×2 (08:08→21:00)
[2017-08-22] MEDS: MULTIVITAMINS THERAPEUTIC TAB PO (08:09)
[2017-08-22] MEDS: LISINOPRIL 5 MG TAB PO (08:09)
[2017-08-22] MEDS: HEPARIN 5,000 UNIT/0.5 ML VIAL SC ×2 (08:10→21:02)
[2017-08-22] MEDS: COLLAGENASE 30 GM TUBE TOP (09:00)
[2017-08-22] MEDS: CEFTRIAXONE 1 GM/50 ML (PMX) 50 ML IVPB (13:24)
[2017-08-22] MEDS: INSULIN GLARGINE [LANtus] 3 ML PEN SC (20:08)
[2017-08-23] MEDS: ACCU-CHEK XX (01:59)
[2017-08-23] MEDS: LEVOTHYROXINE 50 MCG TAB PO (05:30)
[2017-08-23 07:14] LABS: ADD MAN DIFF? NO
[2017-08-23 07:23] LABS: WHITE BLOOD COUNT 5.6 10^3/ul (4.8-10.8)
[2017-08-23 07:23] LABS: BASOPHIL # 0.1 10^3/ul (0.0-0.1); BASOPHILS % 1.4 % (0.0-2.0); EOSINOPHILS # 0.2 10^3/ul (0.0-0.5); EOSINOPHILS % 4.3 % (0.0-7.0); HEMOGLOBIN 12.2 g/dl (14.0-18.0); LYMPHOCYTES # 1.6 10^3/ul (0.8-2.9); LYMPHOCYTES % 28.3 % (15.0-51.0); MEAN CORPUSCULAR HEMOGLOBIN 28.8 pg (29.0-33.0); MEAN CORPUSCULAR VOLUME 87.5 fl (82.0-101.0); MEAN PLATELET VOLUME 9.4 fl (7.4-10.4); MONOCYTES % 17.2 % (0.0-11.0); NEUTROPHIL # 2.7 10^3/ul (1.6-7.5); NEUTROPHILS % 47.7 % (39.0-77.0); PLATELET COUNT 322 10^3/UL (140-415); RED BLOOD COUNT 4.23 10^6/ul (4.70-6.10); RED CELL DISTRIBUTION WIDTH 16.4 % (11.5-14.5)
[2017-08-23 07:54] LABS: MAGNESIUM 1.9 mg/dl (1.7-2.5)
[2017-08-23 07:55] LABS: ANION GAP 12 (8-16); BLOOD UREA NITROGEN 19 mg/dl (7-20); CALCIUM 9.2 mg/dl (8.4-10.2); CARBON DIOXIDE 32 mmol/L (21-31); CHLORIDE 101 mmol/L (97-110); CREATININE 0.94 mg/dl (0.61-1.24); GLUCOSE 105 mg/dl (70-220); POTASSIUM 4.4 mmol/L (3.5-5.1); SODIUM 141 mmol/L (135-144)
[2017-08-23] MEDS: INSULIN ASPART [NOVOLOG] 3 ML PEN SC ×7 (08:00→20:45)
[2017-08-23] MEDS: HEPARIN 5,000 UNIT/0.5 ML VIAL SC ×2 (08:19→20:53)
[2017-08-23] MEDS: LISINOPRIL 5 MG TAB PO (08:20)
[2017-08-23] MEDS: RANOLAZINE (SR) 500 MG TAB PO ×2 (08:20→20:49)
[2017-08-23] MEDS: ISOSORBIDE DINITRATE 10 MG TAB PO ×3 (08:21→20:48)
[2017-08-23] MEDS: MULTIVITAMINS THERAPEUTIC TAB PO (08:21)
[2017-08-23] MEDS: FUROSEMIDE 20 MG TAB PO (08:25)
[2017-08-23] MEDS: VANCOMYCIN 750 MG in DEXTROSE 5% 150 ML IVPB ×2 (08:25→20:50)
[2017-08-23] MEDS: COLLAGENASE 30 GM TUBE TOP (08:26)
[2017-08-23] MEDS: CEFTRIAXONE 1 GM/50 ML (PMX) 50 ML IVPB (13:26)
[2017-08-23] MEDS: INSULIN GLARGINE [LANtus] 3 ML PEN SC (20:54)
[2017-08-24] MEDS: ACCU-CHEK XX (02:00)
[2017-08-24] MEDS: LEVOTHYROXINE 50 MCG TAB PO (05:09)
[2017-08-24] MEDS: INSULIN ASPART [NOVOLOG] 3 ML PEN SC ×7 (08:00→21:00)
[2017-08-24] MEDS: VANCOMYCIN 750 MG in DEXTROSE 5% 150 ML IVPB ×2 (08:06→21:43)
[2017-08-24] MEDS: HEPARIN 5,000 UNIT/0.5 ML VIAL SC ×2 (09:33→21:48)
[2017-08-24] MEDS: FUROSEMIDE 20 MG TAB PO (09:34)
[2017-08-24] MEDS: RANOLAZINE (SR) 500 MG TAB PO ×2 (09:34→21:44)
[2017-08-24] MEDS: MULTIVITAMINS THERAPEUTIC TAB PO (09:35)
[2017-08-24] MEDS: SPIRONOLACTONE 25 MG TAB PO (09:35)
[2017-08-24] MEDS: LISINOPRIL 5 MG TAB PO (09:35)
[2017-08-24] MEDS: ISOSORBIDE DINITRATE 10 MG TAB PO ×3 (09:35→21:44)
[2017-08-24] MEDS: COLLAGENASE 30 GM TUBE TOP (09:50)
[2017-08-24] MEDS: CEFTRIAXONE 1 GM/50 ML (PMX) 50 ML IVPB (14:43)
[2017-08-24] MEDS: INSULIN GLARGINE [LANtus] 3 ML PEN SC (21:47)
[2017-08-24] MEDS: metroNIDAZOLE 500 MG/NS (PMX) 100 ML IVPB (23:38)
[2017-08-24] MEDS: HYDROCODONE/APAP (10/325) TAB PO (23:38)
[2017-08-25] MEDS: ACCU-CHEK XX (02:00)
[2017-08-25] MEDS: metroNIDAZOLE 500 MG/NS (PMX) 100 ML IVPB ×3 (05:10→21:36)
[2017-08-25] MEDS: LEVOTHYROXINE 50 MCG TAB PO (05:22)
[2017-08-25] MEDS: INSULIN ASPART [NOVOLOG] 3 ML PEN SC ×7 (07:54→21:00)
[2017-08-25] MEDS: HEPARIN 5,000 UNIT/0.5 ML VIAL SC ×2 (08:25→21:38)
[2017-08-25] MEDS: RANOLAZINE (SR) 500 MG TAB PO ×2 (08:27→21:35)
[2017-08-25] MEDS: FUROSEMIDE 20 MG TAB PO (08:28)
[2017-08-25] MEDS: MULTIVITAMINS THERAPEUTIC TAB PO (08:28)
[2017-08-25] MEDS: LISINOPRIL 5 MG TAB PO (08:28)
[2017-08-25] MEDS: ISOSORBIDE DINITRATE 10 MG TAB PO ×3 (08:29→21:35)
[2017-08-25] MEDS: SPIRONOLACTONE 25 MG TAB PO (08:30)
[2017-08-25] MEDS: VANCOMYCIN 750 MG in DEXTROSE 5% 150 ML IVPB ×2 (08:36→21:36)
[2017-08-25] MEDS: COLLAGENASE 30 GM TUBE TOP (09:41)
[2017-08-25] MEDS: CEFTRIAXONE 1 GM/50 ML (PMX) 50 ML IVPB (15:05)
[2017-08-25 19:45] LABS: VANCOMYCIN,TROUGH 14.2 ug/ml (10.0-20.0)
[2017-08-25] MEDS: INSULIN GLARGINE [LANtus] 3 ML PEN SC (21:38)
[2017-08-26] MEDS: ACCU-CHEK XX (02:00)
[2017-08-26] MEDS: LEVOTHYROXINE 50 MCG TAB PO (05:48)
[2017-08-26] MEDS: metroNIDAZOLE 500 MG/NS (PMX) 100 ML IVPB ×3 (05:48→21:39)
[2017-08-26] MEDS: INSULIN ASPART [NOVOLOG] 3 ML PEN SC ×8 (07:35→20:44)
[2017-08-26] MEDS: HEPARIN 5,000 UNIT/0.5 ML VIAL SC ×2 (08:43→20:48)
[2017-08-26] MEDS: FUROSEMIDE 20 MG TAB PO (08:44)
[2017-08-26] MEDS: ISOSORBIDE DINITRATE 10 MG TAB PO ×3 (08:44→20:50)
[2017-08-26] MEDS: LISINOPRIL 5 MG TAB PO (08:44)
[2017-08-26] MEDS: MULTIVITAMINS THERAPEUTIC TAB PO (08:45)
[2017-08-26] MEDS: SPIRONOLACTONE 25 MG TAB PO (08:45)
[2017-08-26] MEDS: RANOLAZINE (SR) 500 MG TAB PO ×2 (08:45→20:50)
[2017-08-26] MEDS: VANCOMYCIN 750 MG in DEXTROSE 5% 150 ML IVPB ×2 (08:51→20:39)
[2017-08-26] MEDS: COLLAGENASE 30 GM TUBE TOP (08:52)
[2017-08-26] MEDS: CEFTRIAXONE 1 GM/50 ML (PMX) 50 ML IVPB (14:49)
[2017-08-26] MEDS: INSULIN GLARGINE [LANtus] 3 ML PEN SC (20:44)
[2017-08-27] MEDS: ACCU-CHEK XX (02:00)
[2017-08-27] MEDS: LEVOTHYROXINE 50 MCG TAB PO (05:07)
[2017-08-27] MEDS: metroNIDAZOLE 500 MG/NS (PMX) 100 ML IVPB ×3 (05:07→22:30)
[2017-08-27 05:30] LABS: ADD MAN DIFF? NO
[2017-08-27 05:34] LABS: WHITE BLOOD COUNT 6.8 10^3/ul (4.8-10.8)
[2017-08-27 05:34] LABS: BASOPHIL # 0.1 10^3/ul (0.0-0.1); BASOPHILS % 1.2 % (0.0-2.0); EOSINOPHILS # 0.5 10^3/ul (0.0-0.5); EOSINOPHILS % 6.7 % (0.0-7.0); HEMATOCRIT 36.8 % (42.0-52.0); HEMOGLOBIN 12.1 g/dl (14.0-18.0); LYMPHOCYTES # 1.5 10^3/ul (0.8-2.9); LYMPHOCYTES % 21.6 % (15.0-51.0); MEAN CORPUSCULAR HEMOGLOBIN 28.6 pg (29.0-33.0); MEAN CORPUSCULAR HGB CONC 32.9 g/dl (32.0-37.0); MEAN PLATELET VOLUME 9.9 fl (7.4-10.4); MONOCYTES % 14.3 % (0.0-11.0); NEUTROPHIL # 3.7 10^3/ul (1.6-7.5); NEUTROPHILS % 54.9 % (39.0-77.0); PLATELET COUNT 280 10^3/UL (140-415); RED BLOOD COUNT 4.23 10^6/ul (4.70-6.10); RED CELL DISTRIBUTION WIDTH 16.7 % (11.5-14.5)
[2017-08-27 06:03] LABS: ANION GAP 15 (8-16); BLOOD UREA NITROGEN 26 mg/dl (7-20); CALCIUM 9.4 mg/dl (8.4-10.2); CARBON DIOXIDE 29 mmol/L (21-31); CHLORIDE 102 mmol/L (97-110); CREATININE 0.92 mg/dl (0.61-1.24); GLUCOSE 101 mg/dl (70-220); POTASSIUM 4.7 mmol/L (3.5-5.1); SODIUM 141 mmol/L (135-144)
[2017-08-27] MEDS: INSULIN ASPART [NOVOLOG] 3 ML PEN SC ×7 (07:35→20:47)
[2017-08-27] MEDS: HEPARIN 5,000 UNIT/0.5 ML VIAL SC ×2 (08:13→20:29)
[2017-08-27] MEDS: VANCOMYCIN 750 MG in DEXTROSE 5% 150 ML IVPB ×2 (08:18→20:30)
[2017-08-27] MEDS: MULTIVITAMINS THERAPEUTIC TAB PO (08:19)
[2017-08-27] MEDS: RANOLAZINE (SR) 500 MG TAB PO ×2 (08:19→20:34)
[2017-08-27] MEDS: ISOSORBIDE DINITRATE 10 MG TAB PO ×3 (08:19→20:35)
[2017-08-27] MEDS: SPIRONOLACTONE 25 MG TAB PO (08:19)
[2017-08-27] MEDS: FUROSEMIDE 20 MG TAB PO (08:19)
[2017-08-27] MEDS: LISINOPRIL 5 MG TAB PO (09:00)
[2017-08-27] MEDS: COLLAGENASE 30 GM TUBE TOP (09:57)
[2017-08-27] MEDS: DEXTROSE 5% 1,000 ML IV (10:15)
[2017-08-27] MEDS: CEFTRIAXONE 1 GM/50 ML (PMX) 50 ML IVPB (14:37)
[2017-08-27] MEDS ORDERED: BACITRACIN 50000 UNITS INJ (15:53)
[2017-08-27] MEDS ORDERED: ETOMIDATE 20 MG INJ (15:54)
[2017-08-27] MEDS ORDERED: MIDAZOLAM 1 MG/ML 2 ML INJ ×2 (15:55→16:22)
[2017-08-27] MEDS ORDERED: FENTAnyl 50 MCG/ML VIAL (15:55)
[2017-08-27] MEDS ORDERED: POLYMYXIN B 500000 UNIT INJ (16:00)
[2017-08-27] MEDS: LIDOCAINE 2% (MDV) 20 ML INJ ×2 (16:14→16:23)
[2017-08-27] MEDS: BUPIVACAINE 0.5% (SDV) 30 ML INJ (16:14)
[2017-08-27] MEDS ORDERED: ONDANSETRON 4 MG INJ IV (17:00)
[2017-08-27] MEDS ORDERED: EPHEDrine SULFATE 50 MG/5 ML SYG IV (17:00)
[2017-08-27] MEDS ORDERED: HYDROmorphONE (0.2 MG/ML) 10ML SYG IV ×3 (17:00)
[2017-08-27] MEDS: INSULIN GLARGINE [LANtus] 3 ML PEN SC (20:30)
[2017-08-28] MEDS: ACCU-CHEK XX (01:33)
[2017-08-28] MEDS: metroNIDAZOLE 500 MG/NS (PMX) 100 ML IVPB ×3 (05:55→22:53)
[2017-08-28] MEDS: LEVOTHYROXINE 50 MCG TAB PO (05:57)
[2017-08-28 06:21] LABS: ADD MAN DIFF? NO
[2017-08-28 06:27] LABS: WHITE BLOOD COUNT 8.3 10^3/ul (4.8-10.8)
[2017-08-28 06:27] LABS: BASOPHIL # 0.1 10^3/ul (0.0-0.1); BASOPHILS % 1.3 % (0.0-2.0); EOSINOPHILS # 0.4 10^3/ul (0.0-0.5); EOSINOPHILS % 4.8 % (0.0-7.0); HEMATOCRIT 37.3 % (42.0-52.0); HEMOGLOBIN 12.4 g/dl (14.0-18.0); LYMPHOCYTES # 1.8 10^3/ul (0.8-2.9); MEAN CORPUSCULAR HGB CONC 33.2 g/dl (32.0-37.0); MEAN CORPUSCULAR VOLUME 87.4 fl (82.0-101.0); MEAN PLATELET VOLUME 10.3 fl (7.4-10.4); MONOCYTES % 11.7 % (0.0-11.0); NEUTROPHIL # 4.9 10^3/ul (1.6-7.5); NEUTROPHILS % 59.5 % (39.0-77.0); PLATELET COUNT 283 10^3/UL (140-415); RED BLOOD COUNT 4.27 10^6/ul (4.70-6.10)
[2017-08-28 07:01] LABS: ANION GAP 14 (8-16); BLOOD UREA NITROGEN 25 mg/dl (7-20); CALCIUM 9.2 mg/dl (8.4-10.2); CARBON DIOXIDE 31 mmol/L (21-31); CHLORIDE 98 mmol/L (97-110); CREATININE 0.98 mg/dl (0.61-1.24); GLUCOSE 74 mg/dl (70-220); POTASSIUM 4.6 mmol/L (3.5-5.1); SODIUM 138 mmol/L (135-144)
[2017-08-28] MEDS: INSULIN ASPART [NOVOLOG] 3 ML PEN SC ×7 (08:00→20:49)
[2017-08-28] MEDS: MULTIVITAMINS THERAPEUTIC TAB PO (08:48)
[2017-08-28] MEDS: RANOLAZINE (SR) 500 MG TAB PO ×2 (08:48→20:46)
[2017-08-28] MEDS: HEPARIN 5,000 UNIT/0.5 ML VIAL SC ×2 (08:51→20:48)
[2017-08-28] MEDS: ISOSORBIDE DINITRATE 10 MG TAB PO ×2 (08:53→12:49)
[2017-08-28] MEDS: VANCOMYCIN 750 MG in DEXTROSE 5% 150 ML IVPB ×2 (09:27→20:46)
[2017-08-28] MEDS: SPIRONOLACTONE 25 MG TAB PO (12:40)
[2017-08-28] MEDS: FUROSEMIDE 20 MG TAB PO (12:40)
[2017-08-28] MEDS: LISINOPRIL 5 MG TAB PO (12:40)
[2017-08-28] MEDS: COLLAGENASE 30 GM TUBE TOP (12:44)
[2017-08-28] MEDS: SOD CHLORIDE 0.9% 500 ML IV (12:51)
[2017-08-28] MEDS: CEFTRIAXONE 1 GM/50 ML (PMX) 50 ML IVPB (15:39)
[2017-08-28] MEDS: INSULIN GLARGINE [LANtus] 3 ML PEN SC (20:49)
[2017-08-29] MEDS: ACCU-CHEK XX (02:00)
[2017-08-29] MEDS: NITROGLYCERIN (SL) 0.4 MG TAB SL (03:07)
[2017-08-29 04:55] LABS: ADD MAN DIFF? NO
[2017-08-29 05:00] LABS: BASOPHIL # 0.1 10^3/ul (0.0-0.1); BASOPHILS % 1.2 % (0.0-2.0); EOSINOPHILS # 0.4 10^3/ul (0.0-0.5); HEMATOCRIT 37.8 % (42.0-52.0); HEMOGLOBIN 12.4 g/dl (14.0-18.0); LYMPHOCYTES # 1.5 10^3/ul (0.8-2.9); MEAN CORPUSCULAR HEMOGLOBIN 28.5 pg (29.0-33.0); MEAN CORPUSCULAR HGB CONC 32.8 g/dl (32.0-37.0); MEAN CORPUSCULAR VOLUME 86.9 fl (82.0-101.0); MEAN PLATELET VOLUME 9.9 fl (7.4-10.4); MONOCYTES % 16.6 % (0.0-11.0); NEUTROPHIL # 2.9 10^3/ul (1.6-7.5); NEUTROPHILS % 49.3 % (39.0-77.0); PLATELET COUNT 265 10^3/UL (140-415); RED BLOOD COUNT 4.35 10^6/ul (4.70-6.10); RED CELL DISTRIBUTION WIDTH 16.4 % (11.5-14.5)
[2017-08-29 05:00] LABS: WHITE BLOOD COUNT 5.9 10^3/ul (4.8-10.8)
[2017-08-29 05:20] LABS: ANION GAP 11 (8-16); BLOOD UREA NITROGEN 22 mg/dl (7-20); CALCIUM 9.3 mg/dl (8.4-10.2); CARBON DIOXIDE 31 mmol/L (21-31); CHLORIDE 101 mmol/L (97-110); CREATININE 0.88 mg/dl (0.61-1.24); GLUCOSE 70 mg/dl (70-220); POTASSIUM 4.2 mmol/L (3.5-5.1); SODIUM 139 mmol/L (135-144)
[2017-08-29] MEDS: metroNIDAZOLE 500 MG/NS (PMX) 100 ML IVPB ×3 (05:39→21:46)
[2017-08-29] MEDS: LEVOTHYROXINE 50 MCG TAB PO (05:39)
[2017-08-29] MEDS: INSULIN ASPART [NOVOLOG] 3 ML PEN SC ×7 (08:00→20:39)
[2017-08-29] MEDS: HEPARIN 5,000 UNIT/0.5 ML VIAL SC ×2 (08:31→20:43)
[2017-08-29] MEDS: RANOLAZINE (SR) 500 MG TAB PO ×2 (08:33→20:42)
[2017-08-29] MEDS: FUROSEMIDE 20 MG TAB PO (08:35)
[2017-08-29] MEDS: MULTIVITAMINS THERAPEUTIC TAB PO (08:35)
[2017-08-29] MEDS: LISINOPRIL 5 MG TAB PO (08:37)
[2017-08-29] MEDS: COLLAGENASE 30 GM TUBE TOP (09:16)
[2017-08-29] MEDS: VANCOMYCIN 750 MG in DEXTROSE 5% 150 ML IVPB ×2 (09:16→19:56)
[2017-08-29] MEDS: HYDROCODONE/APAP (10/325) TAB PO (15:03)
[2017-08-29] MEDS: CEFTRIAXONE 1 GM/50 ML (PMX) 50 ML IVPB (15:31)
[2017-08-29] MEDS: INSULIN GLARGINE [LANtus] 3 ML PEN SC (19:59)
[2017-08-30] MEDS: ACCU-CHEK XX (02:00)
[2017-08-30] MEDS: metroNIDAZOLE 500 MG/NS (PMX) 100 ML IVPB (05:20)
[2017-08-30] MEDS: LEVOTHYROXINE 50 MCG TAB PO (05:21)
[2017-08-30 05:52] LABS: ADD MAN DIFF? NO
[2017-08-30 06:05] LABS: WHITE BLOOD COUNT 5.8 10^3/ul (4.8-10.8)
[2017-08-30 06:05] LABS: BASOPHIL # 0.1 10^3/ul (0.0-0.1); BASOPHILS % 1.4 % (0.0-2.0); EOSINOPHILS # 0.4 10^3/ul (0.0-0.5); EOSINOPHILS % 6.3 % (0.0-7.0); HEMATOCRIT 36.6 % (42.0-52.0); HEMOGLOBIN 12.3 g/dl (14.0-18.0); LYMPHOCYTES # 1.5 10^3/ul (0.8-2.9); MEAN CORPUSCULAR HEMOGLOBIN 29.1 pg (29.0-33.0); MEAN CORPUSCULAR HGB CONC 33.6 g/dl (32.0-37.0); MEAN CORPUSCULAR VOLUME 86.7 fl (82.0-101.0); MEAN PLATELET VOLUME 9.9 fl (7.4-10.4); MONOCYTE # 0.9 10^3/ul (0.3-0.9); MONOCYTES % 15.6 % (0.0-11.0); PLATELET COUNT 254 10^3/UL (140-415); RED BLOOD COUNT 4.22 10^6/ul (4.70-6.10); RED CELL DISTRIBUTION WIDTH 16.7 % (11.5-14.5)
[2017-08-30 06:51] LABS: ANION GAP 14 (8-16); BLOOD UREA NITROGEN 22 mg/dl (7-20); CALCIUM 9.5 mg/dl (8.4-10.2); CARBON DIOXIDE 31 mmol/L (21-31); CHLORIDE 100 mmol/L (97-110); CREATININE 1.06 mg/dl (0.61-1.24); GLUCOSE 108 mg/dl (70-220); POTASSIUM 4.5 mmol/L (3.5-5.1); SODIUM 140 mmol/L (135-144)
[2017-08-30] MEDS: INSULIN ASPART [NOVOLOG] 3 ML PEN SC ×7 (08:00→21:00)
[2017-08-30] MEDS: RANOLAZINE (SR) 500 MG TAB PO ×2 (08:11→21:30)
[2017-08-30] MEDS: MULTIVITAMINS THERAPEUTIC TAB PO (08:12)
[2017-08-30] MEDS: LISINOPRIL 5 MG TAB PO (08:12)
[2017-08-30] MEDS: COLLAGENASE 30 GM TUBE TOP (08:13)
[2017-08-30] MEDS: FUROSEMIDE 20 MG TAB PO (08:13)
[2017-08-30] MEDS: HEPARIN 5,000 UNIT/0.5 ML VIAL SC ×2 (08:14→21:27)
[2017-08-30] MEDS: VANCOMYCIN 750 MG in DEXTROSE 5% 150 ML IVPB ×2 (08:22→21:35)
[2017-08-30] MEDS: HYDROCODONE/APAP (10/325) TAB PO (09:47)
[2017-08-30] MEDS: CEFTRIAXONE 1 GM/50 ML (PMX) 50 ML IVPB (15:15)
[2017-08-30] MEDS: metroNIDAZOLE 500 MG TAB PO ×2 (15:15→21:36)
[2017-08-30] MEDS: INSULIN GLARGINE [LANtus] 3 ML PEN SC (21:26)
[2017-08-30] MEDS: ISOSORBIDE DINITRATE 5 MG TAB PO (21:29)
[2017-08-31] MEDS: ACCU-CHEK XX (01:56)
[2017-08-31] MEDS: LEVOTHYROXINE 50 MCG TAB PO (05:22)
[2017-08-31] MEDS: metroNIDAZOLE 500 MG TAB PO ×3 (05:22→21:32)
[2017-08-31 07:16] LABS: ADD MAN DIFF? NO
[2017-08-31 07:20] LABS: WHITE BLOOD COUNT 6.1 10^3/ul (4.8-10.8)
[2017-08-31 07:20] LABS: BASOPHIL # 0.1 10^3/ul (0.0-0.1); BASOPHILS % 1.2 % (0.0-2.0); EOSINOPHILS # 0.3 10^3/ul (0.0-0.5); EOSINOPHILS % 5.4 % (0.0-7.0); HEMATOCRIT 36.5 % (42.0-52.0); LYMPHOCYTES # 1.4 10^3/ul (0.8-2.9); LYMPHOCYTES % 23.1 % (15.0-51.0); MEAN CORPUSCULAR HEMOGLOBIN 28.6 pg (29.0-33.0); MEAN CORPUSCULAR HGB CONC 32.9 g/dl (32.0-37.0); MEAN CORPUSCULAR VOLUME 87.1 fl (82.0-101.0); MEAN PLATELET VOLUME 9.8 fl (7.4-10.4); MONOCYTE # 0.9 10^3/ul (0.3-0.9); MONOCYTES % 14.7 % (0.0-11.0); NEUTROPHIL # 3.3 10^3/ul (1.6-7.5); NEUTROPHILS % 54.8 % (39.0-77.0); PLATELET COUNT 229 10^3/UL (140-415); RED BLOOD COUNT 4.19 10^6/ul (4.70-6.10); RED CELL DISTRIBUTION WIDTH 16.5 % (11.5-14.5)
[2017-08-31 07:48] LABS: ANION GAP 14 (8-16); BLOOD UREA NITROGEN 23 mg/dl (7-20); CALCIUM 9.6 mg/dl (8.4-10.2); CARBON DIOXIDE 30 mmol/L (21-31); CHLORIDE 100 mmol/L (97-110); CREATININE 0.97 mg/dl (0.61-1.24); GLUCOSE 146 mg/dl (70-220); POTASSIUM 4.5 mmol/L (3.5-5.1); SODIUM 139 mmol/L (135-144)
[2017-08-31] MEDS: INSULIN ASPART [NOVOLOG] 3 ML PEN SC ×7 (08:00→21:00)
[2017-08-31] MEDS: HEPARIN 5,000 UNIT/0.5 ML VIAL SC ×2 (08:26→21:15)
[2017-08-31 08:27] LABS: VANCOMYCIN,TROUGH 14.5 ug/ml (10.0-20.0)
[2017-08-31] MEDS: MULTIVITAMINS THERAPEUTIC TAB PO (08:27)
[2017-08-31] MEDS: RANOLAZINE (SR) 500 MG TAB PO ×2 (08:27→21:15)
[2017-08-31] MEDS: LISINOPRIL 5 MG TAB PO ×2 (09:00→11:59)
[2017-08-31] MEDS: FUROSEMIDE 20 MG TAB PO ×2 (09:00→11:58)
[2017-08-31] MEDS: ISOSORBIDE DINITRATE 5 MG TAB PO ×3 (09:00→13:00)
[2017-08-31] MEDS: COLLAGENASE 30 GM TUBE TOP (09:38)
[2017-08-31] MEDS: VANCOMYCIN 750 MG in DEXTROSE 5% 150 ML IVPB ×2 (09:41→21:13)
[2017-08-31] MEDS: CEFTRIAXONE 1 GM/50 ML (PMX) 50 ML IVPB (13:46)
[2017-08-31] MEDS: INSULIN GLARGINE [LANtus] 3 ML PEN SC (21:14)
[2017-09-01] MEDS: ACCU-CHEK XX (02:00)
[2017-09-01] MEDS: metroNIDAZOLE 500 MG TAB PO ×3 (06:10→22:39)
[2017-09-01] MEDS: LEVOTHYROXINE 50 MCG TAB PO (06:10)
[2017-09-01 06:43] LABS: ANION GAP 15 (8-16); BLOOD UREA NITROGEN 24 mg/dl (7-20); CALCIUM 9.1 mg/dl (8.4-10.2); CARBON DIOXIDE 30 mmol/L (21-31); CHLORIDE 100 mmol/L (97-110); CREATININE 0.97 mg/dl (0.61-1.24); GLUCOSE 135 mg/dl (70-220); MAGNESIUM 1.9 mg/dl (1.7-2.5); PHOSPHORUS 4.7 mg/dl (2.5-4.9); POTASSIUM 4.6 mmol/L (3.5-5.1); SODIUM 140 mmol/L (135-144)
[2017-09-01] MEDS: INSULIN ASPART [NOVOLOG] 3 ML PEN SC ×7 (07:51→21:00)
[2017-09-01] MEDS: VANCOMYCIN 750 MG in DEXTROSE 5% 150 ML IVPB ×2 (07:51→21:09)
[2017-09-01] MEDS: MULTIVITAMINS THERAPEUTIC TAB PO (08:23)
[2017-09-01] MEDS: RANOLAZINE (SR) 500 MG TAB PO ×2 (08:23→21:09)
[2017-09-01] MEDS: COLLAGENASE 30 GM TUBE TOP (08:27)
[2017-09-01] MEDS: HEPARIN 5,000 UNIT/0.5 ML VIAL SC ×2 (08:27→21:11)
[2017-09-01] MEDS: FUROSEMIDE 20 MG TAB PO (08:37)
[2017-09-01] MEDS: LISINOPRIL 5 MG TAB PO (08:37)
[2017-09-01] MEDS: CEFTRIAXONE 1 GM/50 ML (PMX) 50 ML IVPB (14:08)
[2017-09-01] MEDS: INSULIN GLARGINE [LANtus] 3 ML PEN SC (21:12)
[2017-09-02] MEDS: ACCU-CHEK XX (03:00)
[2017-09-02] MEDS: metroNIDAZOLE 500 MG TAB PO ×2 (05:52→13:42)
[2017-09-02] MEDS: LEVOTHYROXINE 50 MCG TAB PO (05:52)
[2017-09-02] MEDS: INSULIN ASPART [NOVOLOG] 3 ML PEN SC ×7 (08:00→20:34)
[2017-09-02] MEDS: HEPARIN 5,000 UNIT/0.5 ML VIAL SC ×2 (08:21→20:36)
[2017-09-02] MEDS: MULTIVITAMINS THERAPEUTIC TAB PO (08:24)
[2017-09-02] MEDS: LISINOPRIL 5 MG TAB PO (08:25)
[2017-09-02] MEDS: RANOLAZINE (SR) 500 MG TAB PO ×2 (08:25→20:34)
[2017-09-02] MEDS: FUROSEMIDE 20 MG TAB PO (08:26)
[2017-09-02] MEDS: VANCOMYCIN 750 MG in DEXTROSE 5% 150 ML IVPB (10:02)
[2017-09-02] MEDS: COLLAGENASE 30 GM TUBE TOP (10:02)
[2017-09-02] MEDS: CEFTRIAXONE 1 GM/50 ML (PMX) 50 ML IVPB (13:42)
[2017-09-02] MEDS: TRIMETHOPRIM/SULFAMETHOX (DS) TAB PO (20:34)
[2017-09-02] MEDS: INSULIN GLARGINE [LANtus] 3 ML PEN SC (20:36)
[2017-09-03] MEDS: ACCU-CHEK XX (02:00)
[2017-09-03] MEDS: LEVOTHYROXINE 50 MCG TAB PO (05:27)
[2017-09-03] MEDS: LEVOFLOXACIN 750 MG TABLET PO (05:27)
[2017-09-03] MEDS: HYDROCODONE/APAP (10/325) TAB PO (05:58)
[2017-09-03] MEDS: INSULIN ASPART [NOVOLOG] 3 ML PEN SC ×7 (08:00→20:20)
[2017-09-03] MEDS: RANOLAZINE (SR) 500 MG TAB PO ×2 (08:27→20:19)
[2017-09-03] MEDS: MULTIVITAMINS THERAPEUTIC TAB PO (08:29)
[2017-09-03] MEDS: FUROSEMIDE 20 MG TAB PO (08:29)
[2017-09-03] MEDS: HEPARIN 5,000 UNIT/0.5 ML VIAL SC ×2 (08:29→20:18)
[2017-09-03] MEDS: TRIMETHOPRIM/SULFAMETHOX (DS) TAB PO ×2 (08:29→20:18)
[2017-09-03] MEDS: LISINOPRIL 5 MG TAB PO (08:30)
[2017-09-03] MEDS: COLLAGENASE 30 GM TUBE TOP (08:36)
[2017-09-03] MEDS: ONDANSETRON 4 MG INJ IV (08:45)
[2017-09-03] MEDS: INSULIN GLARGINE [LANtus] 3 ML PEN SC (20:18)
[2017-09-04] MEDS: ACCU-CHEK XX (02:00)
[2017-09-04] MEDS: LEVOFLOXACIN 750 MG TABLET PO (05:32)
[2017-09-04] MEDS: LEVOTHYROXINE 50 MCG TAB PO (05:32)
[2017-09-04] MEDS: INSULIN ASPART [NOVOLOG] 3 ML PEN SC ×7 (08:00→20:59)
[2017-09-04] MEDS: HEPARIN 5,000 UNIT/0.5 ML VIAL SC ×2 (08:32→21:05)
[2017-09-04] MEDS: LISINOPRIL 5 MG TAB PO (08:33)
[2017-09-04] MEDS: MULTIVITAMINS THERAPEUTIC TAB PO (08:33)
[2017-09-04] MEDS: TRIMETHOPRIM/SULFAMETHOX (DS) TAB PO ×2 (08:33→21:01)
[2017-09-04] MEDS: FUROSEMIDE 20 MG TAB PO (08:33)
[2017-09-04] MEDS: RANOLAZINE (SR) 500 MG TAB PO ×2 (08:33→21:01)
[2017-09-04] MEDS: COLLAGENASE 30 GM TUBE TOP (08:37)
[2017-09-04] MEDS: INSULIN GLARGINE [LANtus] 3 ML PEN SC (21:06)
[2017-09-05] MEDS: ACCU-CHEK XX (02:00)
[2017-09-05] MEDS: LEVOFLOXACIN 750 MG TABLET PO (06:32)
[2017-09-05] MEDS: LEVOTHYROXINE 50 MCG TAB PO (06:32)
[2017-09-05] MEDS: INSULIN ASPART [NOVOLOG] 3 ML PEN SC ×7 (08:00→20:47)
[2017-09-05] MEDS: LISINOPRIL 5 MG TAB PO (08:03)
[2017-09-05] MEDS: COLLAGENASE 30 GM TUBE TOP (08:28)
[2017-09-05] MEDS: FUROSEMIDE 20 MG TAB PO (08:28)
[2017-09-05] MEDS: MULTIVITAMINS THERAPEUTIC TAB PO (08:28)
[2017-09-05] MEDS: RANOLAZINE (SR) 500 MG TAB PO ×2 (08:28→20:42)
[2017-09-05] MEDS: TRIMETHOPRIM/SULFAMETHOX (DS) TAB PO ×2 (08:28→20:42)
[2017-09-05] MEDS: HEPARIN 5,000 UNIT/0.5 ML VIAL SC ×2 (08:29→20:46)
[2017-09-05] MEDS: INSULIN GLARGINE [LANtus] 3 ML PEN SC (20:40)
[2017-09-06] MEDS: ACCU-CHEK XX (02:00)
[2017-09-06] MEDS: LEVOTHYROXINE 50 MCG TAB PO (06:03)
[2017-09-06] MEDS: LEVOFLOXACIN 750 MG TABLET PO (06:03)
[2017-09-06] MEDS: INSULIN ASPART [NOVOLOG] 3 ML PEN SC ×7 (08:00→21:00)
[2017-09-06] MEDS: HEPARIN 5,000 UNIT/0.5 ML VIAL SC ×2 (08:36→21:13)
[2017-09-06] MEDS: RANOLAZINE (SR) 500 MG TAB PO ×2 (08:37→21:14)
[2017-09-06] MEDS: MULTIVITAMINS THERAPEUTIC TAB PO (08:37)
[2017-09-06] MEDS: TRIMETHOPRIM/SULFAMETHOX (DS) TAB PO ×2 (08:37→21:15)
[2017-09-06] MEDS: LISINOPRIL 5 MG TAB PO (08:37)
[2017-09-06] MEDS: FUROSEMIDE 20 MG TAB PO (08:38)
[2017-09-06] MEDS: COLLAGENASE 30 GM TUBE TOP (11:59)
[2017-09-06] MEDS: INSULIN GLARGINE [LANtus] 3 ML PEN SC (21:13)
[2017-09-07] MEDS: ACCU-CHEK XX (02:00)
[2017-09-07] MEDS: LEVOTHYROXINE 50 MCG TAB PO (05:35)
[2017-09-07] MEDS: LEVOFLOXACIN 750 MG TABLET PO (05:35)
[2017-09-07] MEDS: INSULIN ASPART [NOVOLOG] 3 ML PEN SC ×7 (08:00→20:31)
[2017-09-07] MEDS: TRIMETHOPRIM/SULFAMETHOX (DS) TAB PO ×2 (08:16→20:32)
[2017-09-07] MEDS: RANOLAZINE (SR) 500 MG TAB PO ×2 (08:16→20:34)
[2017-09-07] MEDS: MULTIVITAMINS THERAPEUTIC TAB PO (08:16)
[2017-09-07] MEDS: LISINOPRIL 5 MG TAB PO (08:17)
[2017-09-07] MEDS: FUROSEMIDE 20 MG TAB PO (08:17)
[2017-09-07] MEDS: HEPARIN 5,000 UNIT/0.5 ML VIAL SC ×2 (08:17→20:33)
[2017-09-07] MEDS: COLLAGENASE 30 GM TUBE TOP (16:30)
[2017-09-07] MEDS: GABAPENTIN 100 MG CAP PO ×2 (17:11→23:10)
[2017-09-07] MEDS: INSULIN GLARGINE [LANtus] 3 ML PEN SC (20:33)
[2017-09-08] MEDS: ACCU-CHEK XX (01:05)
[2017-09-08] MEDS: LEVOFLOXACIN 750 MG TABLET PO (06:18)
[2017-09-08] MEDS: LEVOTHYROXINE 50 MCG TAB PO (06:18)
[2017-09-08] MEDS: INSULIN ASPART [NOVOLOG] 3 ML PEN SC ×7 (08:21→20:48)
[2017-09-08] MEDS: RANOLAZINE (SR) 500 MG TAB PO ×2 (08:22→20:48)
[2017-09-08] MEDS: HEPARIN 5,000 UNIT/0.5 ML VIAL SC ×2 (08:22→20:51)
[2017-09-08] MEDS: GABAPENTIN 100 MG CAP PO ×3 (08:23→20:48)
[2017-09-08] MEDS: MULTIVITAMINS THERAPEUTIC TAB PO (08:23)
[2017-09-08] MEDS: TRIMETHOPRIM/SULFAMETHOX (DS) TAB PO ×2 (08:23→20:48)
[2017-09-08] MEDS: COLLAGENASE 30 GM TUBE TOP (08:23)
[2017-09-08] MEDS: FUROSEMIDE 20 MG TAB PO (08:23)
[2017-09-08] MEDS: LISINOPRIL 5 MG TAB PO (08:23)
[2017-09-08] MEDS: INSULIN GLARGINE [LANtus] 3 ML PEN SC (20:50)
[2017-09-09] MEDS: ACCU-CHEK XX (01:13)
[2017-09-09] MEDS: LEVOTHYROXINE 50 MCG TAB PO (06:34)
[2017-09-09] MEDS: LEVOFLOXACIN 750 MG TABLET PO (06:34)
[2017-09-09] MEDS: INSULIN ASPART [NOVOLOG] 3 ML PEN SC ×7 (07:35→20:51)
[2017-09-09] MEDS: LISINOPRIL 5 MG TAB PO (08:39)
[2017-09-09] MEDS: GABAPENTIN 100 MG CAP PO ×3 (08:39→20:48)
[2017-09-09] MEDS: COLLAGENASE 30 GM TUBE TOP (08:39)
[2017-09-09] MEDS: RANOLAZINE (SR) 500 MG TAB PO ×2 (08:39→20:48)
[2017-09-09] MEDS: TRIMETHOPRIM/SULFAMETHOX (DS) TAB PO ×2 (08:40→20:48)
[2017-09-09] MEDS: FUROSEMIDE 20 MG TAB PO (08:40)
[2017-09-09] MEDS: HEPARIN 5,000 UNIT/0.5 ML VIAL SC ×2 (08:40→20:51)
[2017-09-09] MEDS: MULTIVITAMINS THERAPEUTIC TAB PO (08:48)
[2017-09-09] MEDS: INSULIN GLARGINE [LANtus] 3 ML PEN SC (20:51)
[2017-09-10] MEDS: ACCU-CHEK XX (01:32)
[2017-09-10] MEDS: LEVOTHYROXINE 50 MCG TAB PO (05:58)
[2017-09-10] MEDS: LEVOFLOXACIN 750 MG TABLET PO (05:58)
[2017-09-10] MEDS: INSULIN ASPART [NOVOLOG] 3 ML PEN SC ×7 (07:35→21:00)
[2017-09-10] MEDS: FUROSEMIDE 20 MG TAB PO (09:00)
[2017-09-10] MEDS: LISINOPRIL 5 MG TAB PO (09:00)
[2017-09-10] MEDS: RANOLAZINE (SR) 500 MG TAB PO ×2 (09:07→20:43)
[2017-09-10] MEDS: MULTIVITAMINS THERAPEUTIC TAB PO (09:07)
[2017-09-10] MEDS: TRIMETHOPRIM/SULFAMETHOX (DS) TAB PO ×2 (09:07→20:42)
[2017-09-10] MEDS: GABAPENTIN 100 MG CAP PO ×3 (09:07→20:43)
[2017-09-10] MEDS: HEPARIN 5,000 UNIT/0.5 ML VIAL SC ×2 (09:09→20:40)
[2017-09-10] MEDS: COLLAGENASE 30 GM TUBE TOP (09:09)
[2017-09-10] MEDS: INSULIN GLARGINE [LANtus] 3 ML PEN SC (20:37)
[2017-09-11] MEDS: ACCU-CHEK XX (02:00)
[2017-09-11] MEDS: LEVOFLOXACIN 750 MG TABLET PO (05:53)
[2017-09-11] MEDS: LEVOTHYROXINE 50 MCG TAB PO (05:53)
[2017-09-11] MEDS: INSULIN ASPART [NOVOLOG] 3 ML PEN SC ×7 (08:00→21:00)
[2017-09-11] MEDS: COLLAGENASE 30 GM TUBE TOP (08:47)
[2017-09-11] MEDS: HEPARIN 5,000 UNIT/0.5 ML VIAL SC ×2 (08:47→21:13)
[2017-09-11] MEDS: LISINOPRIL 5 MG TAB PO (08:49)
[2017-09-11] MEDS: FUROSEMIDE 20 MG TAB PO (08:50)
[2017-09-11] MEDS: GABAPENTIN 100 MG CAP PO ×3 (08:50→21:10)
[2017-09-11] MEDS: TRIMETHOPRIM/SULFAMETHOX (DS) TAB PO ×2 (08:50→21:10)
[2017-09-11] MEDS: RANOLAZINE (SR) 500 MG TAB PO ×2 (08:50→21:10)
[2017-09-11] MEDS: MULTIVITAMINS THERAPEUTIC TAB PO (08:51)
[2017-09-11] MEDS: INSULIN GLARGINE [LANtus] 3 ML PEN SC (21:17)
[2017-09-12] MEDS: ACCU-CHEK XX (02:00)
[2017-09-12] MEDS: LEVOTHYROXINE 50 MCG TAB PO (06:06)
[2017-09-12] MEDS: LEVOFLOXACIN 750 MG TABLET PO (06:06)
[2017-09-12] MEDS: INSULIN ASPART [NOVOLOG] 3 ML PEN SC ×7 (07:57→21:00)
[2017-09-12] MEDS: RANOLAZINE (SR) 500 MG TAB PO ×2 (08:02→20:42)
[2017-09-12] MEDS: GABAPENTIN 100 MG CAP PO ×3 (08:03→20:42)
[2017-09-12] MEDS: FUROSEMIDE 20 MG TAB PO (08:03)
[2017-09-12] MEDS: MULTIVITAMINS THERAPEUTIC TAB PO (08:03)
[2017-09-12] MEDS: TRIMETHOPRIM/SULFAMETHOX (DS) TAB PO ×2 (08:03→20:44)
[2017-09-12] MEDS: LISINOPRIL 5 MG TAB PO (08:04)
[2017-09-12] MEDS: HEPARIN 5,000 UNIT/0.5 ML VIAL SC ×2 (08:05→20:46)
[2017-09-12] MEDS: COLLAGENASE 30 GM TUBE TOP (08:20)
[2017-09-12] MEDS ORDERED: DOCUSATE SODIUM 250 MG CAP PO (16:00)
[2017-09-12] MEDS ORDERED: SKIN RESP FACT/SHARK/PH MERCU SUPP PR (17:00)
[2017-09-12] MEDS: INSULIN GLARGINE [LANtus] 3 ML PEN SC (20:46)
[2017-09-13] MEDS: ACCU-CHEK XX (02:00)
[2017-09-13] MEDS: LEVOTHYROXINE 50 MCG TAB PO (06:03)
[2017-09-13] MEDS: LEVOFLOXACIN 750 MG TABLET PO (06:03)
[2017-09-13] MEDS: INSULIN ASPART [NOVOLOG] 3 ML PEN SC ×7 (08:00→21:00)
[2017-09-13] MEDS: LISINOPRIL 5 MG TAB PO (09:00)
[2017-09-13] MEDS: COLLAGENASE 30 GM TUBE TOP ×2 (09:00→10:53)
[2017-09-13] MEDS: GABAPENTIN 100 MG CAP PO ×3 (09:47→20:36)
[2017-09-13] MEDS: HEPARIN 5,000 UNIT/0.5 ML VIAL SC ×2 (09:47→20:38)
[2017-09-13] MEDS: FUROSEMIDE 20 MG TAB PO (09:48)
[2017-09-13] MEDS: TRIMETHOPRIM/SULFAMETHOX (DS) TAB PO ×2 (09:48→20:37)
[2017-09-13] MEDS: RANOLAZINE (SR) 500 MG TAB PO ×2 (09:48→20:37)
[2017-09-13] MEDS: MULTIVITAMINS THERAPEUTIC TAB PO (09:48)
[2017-09-13] MEDS: INSULIN GLARGINE [LANtus] 3 ML PEN SC (20:17)
[2017-09-14] MEDS: ACCU-CHEK XX (02:00)
[2017-09-14] MEDS: LEVOFLOXACIN 750 MG TABLET PO (05:34)
[2017-09-14] MEDS: LEVOTHYROXINE 50 MCG TAB PO (05:34)
[2017-09-14] MEDS: INSULIN ASPART [NOVOLOG] 3 ML PEN SC ×7 (08:00→21:00)
[2017-09-14] MEDS: RANOLAZINE (SR) 500 MG TAB PO ×2 (08:20→21:51)
[2017-09-14] MEDS: MULTIVITAMINS THERAPEUTIC TAB PO (08:20)
[2017-09-14] MEDS: FUROSEMIDE 20 MG TAB PO (08:21)
[2017-09-14] MEDS: TRIMETHOPRIM/SULFAMETHOX (DS) TAB PO ×2 (08:21→21:21)
[2017-09-14] MEDS: HEPARIN 5,000 UNIT/0.5 ML VIAL SC ×2 (08:22→21:23)
[2017-09-14] MEDS: LISINOPRIL 5 MG TAB PO (08:24)
[2017-09-14] MEDS: GABAPENTIN 100 MG CAP PO ×3 (08:54→21:21)
[2017-09-14] MEDS: COLLAGENASE 30 GM TUBE TOP (09:00)
[2017-09-14] MEDS: INSULIN GLARGINE [LANtus] 3 ML PEN SC (20:17)
[2017-09-15] MEDS: ACCU-CHEK XX (02:00)
[2017-09-15] MEDS: LEVOTHYROXINE 50 MCG TAB PO (05:40)
[2017-09-15] MEDS: LEVOFLOXACIN 750 MG TABLET PO (05:40)
[2017-09-15] MEDS: INSULIN ASPART [NOVOLOG] 3 ML PEN SC ×4 (08:38→12:10)
[2017-09-15] MEDS: TRIMETHOPRIM/SULFAMETHOX (DS) TAB PO (09:12)
[2017-09-15] MEDS: MULTIVITAMINS THERAPEUTIC TAB PO (09:12)
[2017-09-15] MEDS: LISINOPRIL 5 MG TAB PO (09:12)
[2017-09-15] MEDS: RANOLAZINE (SR) 500 MG TAB PO (09:12)
[2017-09-15] MEDS: FUROSEMIDE 20 MG TAB PO (09:12)
[2017-09-15] MEDS: HEPARIN 5,000 UNIT/0.5 ML VIAL SC (09:13)
[2017-09-15] MEDS: COLLAGENASE 30 GM TUBE TOP (09:13)
[2017-09-15] MEDS: GABAPENTIN 100 MG CAP PO ×2 (09:13→12:07)
== END 2017-09-15 14:48 | disposition home or self-care (01) | DRG 255 ==
LOC: MS4 18:46 → TEL 08-10 16:07 → PP2 08-01 18:47 → E/R 11:49 → PP2 08-17 19:11
PROC: 0Y6Y0Z0 Detachment at Left 5th Toe, Complete, Open Approach (ICD-10-PCS; principal; 2017-07-31 16:00)
PROC: 0JBQ0ZZ Excision of Right Foot Subcutaneous Tissue and Fascia, Open Approach (ICD-10-PCS; 2017-07-31 16:00)
PROC: 02HV33Z Insertion of Infusion Device into Superior Vena Cava, Percutaneous Approach (ICD-10-PCS; 2017-07-31 16:38)
PROC: 0Y9N3ZZ Drainage of Left Foot, Percutaneous Approach (ICD-10-PCS; 2017-07-31 16:38)
DX: E11.52 Type 2 diabetes mellitus with diabetic peripheral angiopathy with gangrene (principal); J18.9 Pneumonia, unspecified organism; I50.23 Acute on chronic systolic (congestive) heart failure; R64 Cachexia; A48.0 Gas gangrene; E11.42 Type 2 diabetes mellitus with diabetic polyneuropathy; E11.621 Type 2 diabetes mellitus with foot ulcer; L03.115 Cellulitis of right lower limb; E44.1 Mild protein-calorie malnutrition; L03.116 Cellulitis of left lower limb; L02.612 Cutaneous abscess of left foot; M86.9 Osteomyelitis, unspecified; E11.69 Type 2 diabetes mellitus with other specified complication; E11.65 Type 2 diabetes mellitus with hyperglycemia; L97.513 Non-pressure chronic ulcer of other part of right foot with necrosis of muscle; F17.200 Nicotine dependence, unspecified, uncomplicated; Y95 Nosocomial condition; N50.89 Other specified disorders of the male genital organs; I35.9 Nonrheumatic aortic valve disorder, unspecified; I10 Essential (primary) hypertension; I25.5 Ischemic cardiomyopathy; I25.10 Atherosclerotic heart disease of native coronary artery without angina pectoris; E87.5 Hyperkalemia; E03.9 Hypothyroidism, unspecified; Z88.1 Allergy status to other antibiotic agents; E11.51 Type 2 diabetes mellitus with diabetic peripheral angiopathy without gangrene; R62.7 Adult failure to thrive; R07.9 Chest pain, unspecified; Z79.4 Long term (current) use of insulin; Z91.19 Patient's noncompliance with other medical treatment and regimen; Z68.27 Body mass index [BMI] 27.0-27.9, adult; Z88.3 Allergy status to other anti-infective agents
CPT/HCPCS: 36415; 36569; 70450; 71045; 73630-LT; 73718; 76937; 78452; 80048; 80053; 80202; 80306; 80307; 81001; 82565; 82962; 83036; 83735; 83880; 84100; 84439; 84443; 84484; 84520; 85025; 85730; 87040; 87070; 87081; 88304; 88311; 93005; 93017; 93306; 96374; 96375; 97110; 97116; 97162; 97164; 97166; 97530; 97535; 97542; 99285-25